=== PATIENT | female | born 1975 | race Caucasian/White ===

== ENCOUNTER → 2017-03-29 | Outpatient (CLI) | payer OTHER ==
--- NOTE | 2017-04-05 20:49 | CONS ---
DATE OF CONSULTATION: 03/29/2017 This patient is a 41-year-old lady who has been evaluated in the sleep center for possible obstructive sleep apnea/hypopnea syndrome. 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 She sleeps from 7 a.m. until 2 p.m. and takes a nap from around 10 p.m. until 1 a.m. No problem with falling asleep. She has tiredness, mood swings, positive history of snoring before, thyroidectomy which was done in November of 2016. The patient wakes up from sleep once with nocturia. No TV in bedroom. No history of hypnagogic hallucinations, sleep paralysis or cataplexy. [place] Sleepiness Scale is 6. Past medical history is positive for: 1. Acid reflux. 2. Mood swings. 3. Hypothyroidism. PAST SURGICAL HISTORY: Thyroidectomy in November 2016 for goiter. SOCIAL HISTORY: Smoker of 1 pack for 20 years. Alcohol consumption rarely. REVIEW OF SYSTEMS: No fevers. No double vision. No recent chest pain. No shortness of breath. No abdominal pain. No bleeding episodes. No blood in urine. No seizure episodes. Tiredness. Sometimes sleepiness. FAMILY HISTORY: Hypertension, heart problems, sleep apnea, cancer, diabetes. PHYSICAL EXAM: The patient is a pleasant 41-year-old lady without distress. VITAL SIGNS: Blood pressure 126/83, heart rate 78, respiratory rate 18. Height 63. Weight 140. BMI 24.7. Neck 13 inches in circumference. Temperature 98.4. Oxygen saturation on room air 99%. GENERAL: A pleasant patient without distress. HEENT: PERRLA. EOMI. Evaluation of oropharynx showed tongue protrudes midline. Extremely low position of soft palate. Nasal restriction on the left side. NECK: Supple. No JVD. Thyroid is not palpable. LUNGS: Clear to percussion and to auscultation. Good air exchange. No wheezing or rhonchi. HEART: S1, S2 regular. No murmurs, gallops or rubs. ABDOMEN: Soft and non-tender. Bowel sounds are present. No organomegaly appreciated. EXTREMITIES: No clubbing or cyanosis. NECK CUTTER: Awake, alert and oriented x3. Cranial nerves 2 through 7 are intact. There is no fasciculation or atrophy noted. No focal deficits observed. IMPRESSION: 1. History of snoring before thyroidectomy, tiredness during the day, extremely low position of soft palate, restriction of nasal breathing on the left side; possible obstructive sleep apnea/hypopnea syndrome. 2. Tiredness. 3. Episodes of mood swings. 4. Acid reflux. 5. Status post thyroidectomy for goiter in November 2016. 6. Hypothyroidism, on thyroid supplement. 7. Smoker for 20 pack/years. PLAN: 1. Polysomnography for evaluation of patients breathing during sleep. 2. CPAP/BiPAP titration if sleep study confirms obstructive sleep apnea/ hypopnea syndrome. 3. Preferable position during sleep on the side. 4. No driving if feeling any sleepiness. Patient is aware of civil and criminal liability for unsafe driving. 5. I will see this patient for follow-up visit to explain results of the testing and follow-up plan. Sincerely, Modesto Martinez. , PhD, FAASM. Diplomat of [place] [employer], Sleep Medicine Board by [place] [employer] [place] [employer] Landing Support Specialist of [facility]
== END ==
LOC: SLEEP 11:24
PROVIDERS: ATTEND Internal Medicine
DX: R06.83 Snoring (principal); K21.9 Gastro-esophageal reflux disease without esophagitis; E03.9 Hypothyroidism, unspecified; Z79.899 Other long term (current) drug therapy; F17.210 Nicotine dependence, cigarettes, uncomplicated
CPT/HCPCS: 99211

== ENCOUNTER → 2017-09-20 | Outpatient (CLI) | payer OTHER ==
--- NOTE | 2017-09-21 07:18 | MM ---
Reason for exam: additional evaluation requested from abnormal screening. Last mammogram was performed 1 month ago. Physical Findings: Nurse did not find any significant physical abnormalities on exam. MG Work Up Mamm w CAD LT LM and spot compression MLO view(s) were taken of the left breast. Prior study comparison: September 04, 2017, bilateral MG screening mammo w CAD. June 30, 2016, bilateral MG screening mammo w CAD. The breast tissue is heterogeneously dense. This may lower the sensitivity of mammography. Asymmetric tissue better seen on true lateral but does not completely go away on additional spot view. These results were verbally communicated with the patient and result sheet given to the patient on 09/20/17. ASSESSMENT: Incomplete: need additional imaging evaluation, BI-RAD 0 RECOMMENDATION: Ultrasound of the left breast. (axilla)
--- NOTE | 2017-09-21 07:20 | USB ---
Reason for exam: additional evaluation requested from abnormal screening. US Breast Workup Limited LT Left breast ultrasound including axilla demonstrates two oval, benign lymph nodes at 2 o'clock measuring 5mm and 6mm. These results were verbally communicated with the patient and result sheet given to the patient on 09/20/17. ASSESSMENT: Probably benign, BI-RAD 3 RECOMMENDATION: Follow-up diagnostic mammogram of the left breast in 6 months.
== END | disposition home or self-care (01) ==
LOC: RADMAMWWP 13:25
PROVIDERS: ATTEND Family Medicine
DX: R92.8 Other abnormal and inconclusive findings on diagnostic imaging of breast (principal)
CPT/HCPCS: 76642; G0206

== ENCOUNTER → 2018-03-25 | Outpatient (CLI) | payer OTHER ==
--- NOTE | 2018-03-26 08:09 | MM ---
Reason for exam: follow-up at short interval from prior study. Last mammogram was performed 6 months ago. Physical Findings: Nurse did not find any significant physical abnormalities on exam. MG Diagnostic Mammo LT w CAD CC and MLO view(s) were taken of the left breast. Prior study comparison: September 20, 2017, left breast MG work up mamm w CAD LT. September 04, 2017, bilateral MG screening mammo w CAD. The breast tissue is heterogeneously dense. This may lower the sensitivity of mammography. No significant new findings when compared with previous films. These results were verbally communicated with the patient and result sheet given to the patient on 03/25/18. ASSESSMENT: Benign, BI-RAD 2 RECOMMENDATION: Return to routine screening mammogram schedule for both breasts. Back on schedule.
== END | disposition home or self-care (01) ==
LOC: RADMAMWWP 15:26
PROVIDERS: ATTEND Family Medicine
DX: R92.8 Other abnormal and inconclusive findings on diagnostic imaging of breast (principal)
CPT/HCPCS: 77065

== ENCOUNTER → 2018-08-06 | Outpatient (CLI) | payer OTHER ==
--- NOTE | 2018-08-06 15:57 | US ---
EXAMINATION TYPE: US pelvis complete transvag DATE OF EXAM: 08/06/2018 COMPARISON: NONE CLINICAL HISTORY: Left lower quadrant pain R10.32. No period in July. LLQ pain TECHNIQUE: Transvaginal (TV) and Transabdominal (TA) . Transabdominal sonographic images of the pel vis were acquired. Transvaginal sonographic images were medically necessary to better assess the fol lowing anatomy: Endometrium Date of LMP: Jun 2018 EXAM MEASUREMENTS: Uterus: 9.7 x 4.1 x 3.0 cm Endometrial Stripe: 0.9 cm Right Ovary: 2.1 x 0.9 x 1.2 cm Left Ovary: 2.4 x 1.6 x 1.6 cm 1. Uterus: Anteverted Hypoechoic lesion seen midline either adjacent to or within endometrium-- un able to accurately determine = 1.4 x 1.3 x 1.1 cm 2. Endometrium: wnl 3. Right Ovary: wnl 4. Left Ovary: dominant follicle 5. Bilateral Adnexa: wnl 6. Posterior cul-de-sac: no free fluid IMPRESSION: 1. Possible uterine fibroid. This could be a mass within the endometrial canal. Consider MRI for gian tional delineation. 2. Left ovarian cyst. Follow-up is recommended.
== END ==
LOC: RADUSWWP 14:37
PROVIDERS: ATTEND Family Medicine
DX: N83.202 Unspecified ovarian cyst, left side (principal)
CPT/HCPCS: 76830; 76856

== ENCOUNTER → 2018-10-17 | Outpatient (CLI) | payer OTHER ==
--- NOTE | 2018-10-21 17:59 | MM ---
Reason for exam: additional evaluation requested from prior study. Last mammogram was performed 7 months ago. Physical Findings: Nurse did not find any significant physical abnormalities on exam. MG Diagnostic Mammo w CAD FLORESITA Bilateral CC and MLO view(s) were taken. Prior study comparison: March 25, 2018, left breast MG diagnostic mammo LT w CAD. September 20, 2017, left breast MG work up mamm w CAD LT. The breast tissue is heterogeneously dense. This may lower the sensitivity of mammography. No suspicious abnormality. The left breast superior posterior depth asymmetry appears less conspicuous than on the prior and similar to 2016. These results were verbally communicated with the patient and result sheet given to the patient on 10/17/18. ASSESSMENT: Benign, BI-RAD 2 RECOMMENDATION: Routine screening mammogram of both breasts in 1 year.
== END ==
LOC: RADMAMWWP 12:38
PROVIDERS: ATTEND Family Medicine
DX: R92.8 Other abnormal and inconclusive findings on diagnostic imaging of breast (principal)
CPT/HCPCS: 77066

== ENCOUNTER → 2018-11-05 | Outpatient (CLI) | payer OTHER ==
[2018-11-05 09:26] LABS: Basophils # (A) 0.1 k/uL (0-0.2); Basophils % (A) 1 %; Eosinophils # (A) 0.1 k/uL (0-0.7); Eosinophils % (A) 1 %; HCT 38.3 % (34.0-46.0); HGB 12.3 gm/dL (11.4-16.0); Lymphocytes # (A) 2.1 k/uL (1.0-4.8); Lymphocytes % (A) 30 %; MCH 27.4 pg (25.0-35.0); MCHC 32.1 g/dL (31.0-37.0); MCV 85.2 fL (80.0-100.0); Monocytes # (A) 0.5 k/uL (0-1.0); Monocytes % (A) 7 %; Neutrophils # (A) 4.1 k/uL (1.3-7.7); Neutrophils % (A) 58 %; Platelet Count 229 k/uL (150-450)
[2018-11-05 10:02] LABS: Anion Gap 7 mmol/L; Blood Urea Nitrogen 13 mg/dL (7-17); Carbon Dioxide 28 mmol/L (22-30); Chloride 103 mmol/L (98-107); Glucose 96 mg/dL (74-99); Potassium 4.5 mmol/L (3.5-5.1); Sodium 138 mmol/L (137-145)
== END | disposition home or self-care (01) ==
LOC: LABWHC1 08:03
PROVIDERS: ATTEND Obstetrics & Gynecology
DX: Z01.818 Encounter for other preprocedural examination (principal); Z01.812 Encounter for preprocedural laboratory examination; I10 Essential (primary) hypertension; N81.4 Uterovaginal prolapse, unspecified; N39.3 Stress incontinence (female) (male)
CPT/HCPCS: 36415; 80051; 82565; 82947; 84520; 85025; 87086; 93005

== ENCOUNTER 2018-11-12 05:31 | Inpatient (IN) | payer OTHER ==
[2018-11-05 11:18] VITALS: BMI 30.5
--- NOTE | 2018-11-11 14:55 | HP ---
HISTORY AND PHYSICAL REASON FOR ADMISSION: Surgery scheduled 11/12/2018 HISTORY OF PRESENT ILLNESS: The patient is a 43-year-old 3, para 2-0-1-2, who presented on referral for evaluation of dysfunctional uterine bleeding with symptoms of prolapse. She had complained of relatively recent onset of cycle irregularity over the last 3-6 months, but also complained of significant symptoms of pressure with a suprapubic pulling sensation. Additionally, she had complaints of fairly significant stress urinary incontinence for which she was forced to wear a pad daily. On examination, she was found to have grade 3 cystocele and grade 2-3 uterine prolapse. She was counseled regarding options and wished to undergo definitive surgical repair. As she also has fairly clear stress urinary incontinence, she is scheduled to undergo trans obturator sling procedure or Decorah suburethral sling procedure at the hands of Dr. Maguire to follow my surgery. PAST MEDICAL HISTORY: Significant for history of Graves disease. She additionally has some small fibroids as well as menometrorrhagia as noted above. SURGICAL HISTORY: She has undergone a thyroid surgery for removal of the gland in 2017 and remotely underwent tubal ligation. OBSTETRICAL HISTORY: 3, para 2-0-1-2 with 2 term vaginal deliveries and 1 elective interruption of . Method of contraception is tubal ligation. GYNECOLOGIC HISTORY: Unremarkable with no history of any infections to include STDs. FAMILY HISTORY: Noncontributory. SOCIAL HISTORY: The patient is single and does work outside the home. She is a nonsmoker but has a history of smoking. She reports occasional alcohol and no other social concerns. CURRENT MEDICATIONS: Include vitamin D daily. Escitalopram 5 mg daily. Levothyroxine 0.112 mg daily. Lisinopril 10 mg daily. Omeprazole 40 mg daily. ALLERGIES: No known drug allergies. REVIEW OF SYSTEMS: Confined to history of present illness. PHYSICAL EXAMINATION: Vital signs are stable. The patient is afebrile. In general, this is a well- developed, well-nourished white female in no acute distress. HEENT demonstrates PERRLA, EOMI, her oropharynx is clear. NECK: Supple without adenopathy. Her heart has a regular rhythm and rate without murmur. Her lungs are clear to auscultation bilaterally in all brandt. Her abdomen is nondistended, has normoactive bowel sounds, is soft, nontender, without any palpable masses, hepatosplenomegaly, or hernias. Her extremities are without any cyanosis, clubbing, or edema and are nontender to palpation bilaterally. Pelvic examination demonstrates normal external genitalia and BUS with normal vaginal mucosa and cervix. There is a grade 3 cystocele present as well as grade 2-3 uterine prolapse. Uterus is approximately 5 weeks in size, mid plane, mobile, nontender, normal in shape. The adnexa are normal and nontender without any apparent masses bilaterally. ASSESSMENT AND PLAN: Cystocele with uterine prolapse: We have discussed a number of different potential interventions and she has requested definitive therapy. We therefore have intended to proceed with vaginal hysterectomy with anterior repair. The risks and complications of these procedures have been thoroughly discussed including the risks for bleeding, bleeding requiring transfusion, infection, and injury to local structures to include the bowel, bladder, and ureters. She has understood all this and agreed to proceed. She will additionally undergo a Decorah suburethral sling for stress urinary incontinence immediately to follow my procedure with counseling per Dr. Maguire. The typical hospital and postoperative courses have also been discussed. MMODL / IJN: [id number] /
[~2018-11-12 05:31] MED LIST: ceFAZolin IN SWFI 2 GM/20 ML SYRINGE IVP ONE
[2018-11-12] MEDS ORDERED: fentaNYL (PF) 50 MCG/ML 2 ML AMP IV PRN (06:26)
[2018-11-12] MEDS ORDERED: DEXAMETHASONE SOD PHOSPHATE 10 MG/ML 1 ML VIAL IV ONE (06:26)
[2018-11-12] MEDS ORDERED: LACTATED RINGERS 1,000 ML IV SCH (06:26)
[2018-11-12] MEDS ORDERED: LIDOCAINE 1% 20 ML VIAL (10MG/ML) FOR IV START INTRADERMA PRN (06:26)
[2018-11-12] MEDS ORDERED: MIDAZOLAM (PF) 2 MG/2 ML VIAL IV PRN (06:26)
[2018-11-12] MEDS ORDERED: HYDROmorphone 0.5 MG/0.5 ML SYRINGE IVP PRN ×2 (06:26→08:12)
[2018-11-12] MEDS ORDERED: ONDANSETRON 4 MG/2 ML VIAL IVP ONE (06:26)
[2018-11-12] MEDS ORDERED: fentaNYL (PF) 50 MCG/ML 2 ML AMP IVP ONE (07:05)
[2018-11-12] MEDS ORDERED: fentaNYL (PF) 50 MCG/ML 2 ML AMP ONE (07:33)
[2018-11-12] MEDS ORDERED: SUCCINYLCHOLINE CHLORIDE 100 MG/5 ML SYR IV ONE (07:33)
[2018-11-12] MEDS ORDERED: diphenhydrAMINE 50 MG/ML 1 ML VIAL ONE (07:33)
[2018-11-12] MEDS ORDERED: LIDOCAINE 1% INJ 10MG/ML (20 ML MDV) ONE (07:33)
[2018-11-12] MEDS ORDERED: MORPHINE SULFATE (PF) 0.3 MG/0.3 ML SYR ONE (07:33)
[2018-11-12] MEDS ORDERED: PROPOFOL 10 MG/ML 20 ML VIAL IV ONE (07:33)
[2018-11-12] MEDS ORDERED: VASOPRESSIN 20 UNIT/ML 1 ML VIAL IV ONE (07:34)
[2018-11-12] MEDS ORDERED: ONDANSETRON 4 MG/2 ML VIAL IVP PRN (07:48)
[2018-11-12] MEDS ORDERED: KETOROLAC 30 MG/ML 1 ML VIAL IVP PRN (07:48)
[2018-11-12] MEDS ORDERED: IBUPROFEN 600 MG TAB PO PRN (07:48)
[2018-11-12] MEDS ORDERED: METOCLOPRAMIDE 5 MG/ML 2 ML VIAL IVP PRN (07:48)
[2018-11-12] MEDS ORDERED: SIMETHICONE 80 MG CHEWABLE PO PRN (07:48)
[2018-11-12] MEDS ORDERED: Acetaminophen-Codeine 300-30mg TAB PO PRN ×2 (07:48)
[2018-11-12] MEDS ORDERED: NALOXONE 0.4 MG/ML 1 ML VIAL IV PRN (08:12)
[2018-11-12] MEDS ORDERED: NALBUPHINE 10 MG/ML (1 ML AMP) IV PRN (08:12)
[2018-11-12] MEDS ORDERED: diphenhydrAMINE 50 MG/ML 1 ML VIAL IVP PRN (08:12)
[2018-11-12] MEDS ORDERED: GENTAMICIN 40 MG/ML 2 ML VIAL IRRIGATION ONE (08:24)
[2018-11-12] MEDS ORDERED: LACTATED RINGERS 1,000 ML IV ONE (08:35)
--- NOTE | 2018-11-12 09:21 | P.OP ---
Date of Procedure: 11/12/18 Preoperative Diagnosis: #1. Symptomatic pelvic organ prolapse, grade 2+ uterine prolapse, grade 3 cystocele #2. Dysfunctional uterine bleeding #3. Stress urinary incontinence Postoperative Diagnosis: Same Procedure(s) Performed: #1. Vaginal hysterectomy #2. Anterior colporrhaphy #3. Monarc suburethral sling (Tremp) Anesthesia: BRITTA Surgeon: Antonio Escobar Energy Efficiency Finance Manager #1: Kim Maguire Estimated Blood Loss (ml): 300 IV fluids (ml): 800 Urine output (ml): 100 Pathology: other (Uterus) Condition: stable Disposition: PACU Operative Findings: Preoperative pelvic examination confirmed the findings of a grade 2+ uterine prolapse with grade 3 cystocele. Intraoperatively, the tubes and ovaries appeared normal to inspection but were not amenable to removal in either case. They were left in situ. There was a moderate amount of bleeding during the cystocele and sling repair. The rectum appeared to be well supported. Description of Procedure: The patient was prepped and draped in usual fashion after general endotracheal anesthesia was administered by the anesthesiologist. A weighted speculum was placed and the bladder was drained of 100 mL of clear juanjo urine. The cervix was grasped with a double-tooth tenaculum and the cervicovaginal mucosa circumferentially infused with diluted vasopressin solution. The mucosa was then incised circumferentially and reflected distally both bluntly and sharply. The posterior cul-de-sac was identified and incised sharply. The peritoneum was then tagged with a stitch of 2-0 Vicryl for later use. The short weighted speculum was replaced with the long weighted speculum and further reflection of the mucosa carried out. Curved [place] clamps were utilized on each side to take the uterosacral ligament and then up through the cardinal ligament towards the utero-ovarian ligaments on each side. Each was clamped, cut, and tied with a transfixion stitch of 0 Vicryl. After several bites on either side , the uterus was inverted posteriorly to identify the anterior peritoneum which was opened sharply. This isolated the utero-ovarian ligaments on each side which were clamped with curved [place] clamps, cut, and suture- ligated with a transfixion stitch of 0 Vicryl followed by a free tie of 0 Vicryl. Hemostasis was then examined and found to be excellent throughout all the pedicle levels. The long weighted speculum was replaced with the short weighted speculum after ensuring no pathology with the tubes and ovaries. The previously placed stitch of 2-0 Vicryl was utilized to close the parietal peritoneum in a pursestring stitch. The uterosacral ligaments were tied together and through the contralateral ligaments and mucosa in a modified Conde 's culdoplasty with 0 Vicryl. The intervening open posterior cuff was closed with interrupted [id number] stitches of 0 Vicryl. The anterior peritoneum was left open and the edges at the top grasped with Allis clamps. The vesicovaginal mucosa was infused with diluted vasopressin solution. Metzenbaum scissors were utilized to undermine the tissue in the midline and divided to its apex near the urethra. The bladder was then drained of clear juanjo urine, approximately 20 mL. The catheter was left in place. The mucosa was then dissected from the underlying tissues. A moderate amount of bleeding with some fairly large blood vessels was encountered. Cautery was utilized to control most of it while one of the larger vessels was controlled using a Teresa plication stitch during closure. Once adequate reflection of been carried out, serial Teresa plication stitches were taken from near the urethral apex to the intervening open the vagina from the hysterectomy portion. This was using 2-0 Vicryl and 2-0 PDS. The intervening vaginal mucosa that was redundant was then excised with maximum scissors and discarded. The case was then handed to for completion of the [place] suburethral sling. Estimated blood loss for my portion of the case was approximately 250 mL. All sponge, instrument, needle counts were correct. Patient tolerated the procedure well and was passed to the next surgeon in stable condition.
[2018-11-12] MEDS: diphenhydrAMINE 50 MG/ML 1 ML VIAL IVP PRN ×3 (09:40→21:14)
--- NOTE | 2018-11-12 09:40 | P.OP ---
Date of Procedure: 11/12/18 Preoperative Diagnosis: Stress urinary incontinence Postoperative Diagnosis: Same Procedure(s) Performed: Transobturator tape with diagnostic cystoscopy Anesthesia: ANTA Surgeon: Kim Maguire Park Maintenance Technician #1: Antonio Escobar Estimated Blood Loss (ml): 50 IV fluids (ml): 100 Urine output (ml): 100 Pathology: none sent Condition: stable Disposition: PACU Indications for Procedure: Stress urinary incontinence Operative Findings: Diagnostic cystoscopy revealed normal bladder bladder bubble was noted intact cavity was noted complete evaluation of the bladder revealed normal bladder mucosa with no sign of tape perforation both ureteral orifices were noted to be spilling clear yellow urine Description of Procedure: patient was seen in the preoperative area and procedure was reviewed once again. Informed consent was obtained in the office and risks were reviewed including perforation of the bladder, risks of failure of the procedure and urgency after. Patient states understanding all questions were answered the patient was taken operating suite. Prior to the transobturator tape placement a vaginal hysterectomy was performed along with an anterior colporrhaphy with Dr. Escobar. Once the anterior colporrhaphy was completed I entered the operating suite and started my portion of the procedure the after membrane was palpated 5 cm from the clitoris and soto were made on both sides. The vaginal mucosa was then dissected from the midline out toward this side seam machine operator membrane. The device was then opened the hook was placed through the groin incision toward the vaginal opening the tape was then placed on this and pulled through the side seam machine operator membrane toward the groin skin. This was then repeated on the opposite side. The cystoscopy was then performed at this time. The cystoscope was placed through the urethra and toward the bladder bladder bubble was noted the bladder was noted to be intact with no defects both ureteral orifices be spilling clear urine at this time the cystoscopy was complete and the cystoscope was removed. A Zavala catheter was placed. The tape was then placed loosely against the bladder neck and trimmed at the groin edges. Dermabond was placed at the groin incisions. The vaginal mucosa was then closed with 2-0 Vicryl in a running locked fashion. Hemostasis was appreciated. All counts were correct 2 for my portion of the procedure patient tolerated this procedure well and was taking to the recovery room awake in stable condition.
[2018-11-12] MEDS: LACTATED RINGERS 1,000 ML IV SCH ×2 (11:38→18:33)
[2018-11-12] MEDS: SENNOSIDES-DOCUSATE SODIUM 1 EACH TAB PO SCH ×2 (11:39→20:31)
[2018-11-13 05:04] VITALS: PULSE 81
[2018-11-13] MEDS: LACTATED RINGERS 1,000 ML IV SCH (05:04)
[2018-11-13 07:26] LABS: Basophils % (A) 0 %; Eosinophils % (A) 0 %; Lymphocytes # (A) 2.4 k/uL (1.0-4.8); Lymphocytes % (A) 26 %; MCH 27.4 pg (25.0-35.0); MCHC 32.4 g/dL (31.0-37.0); MCV 84.6 fL (80.0-100.0); Mean Platelet Volume 7.5; Monocytes # (A) 0.8 k/uL (0-1.0); Monocytes % (A) 8 %; Neutrophils # (A) 6.1 k/uL (1.3-7.7); Neutrophils % (A) 64 %; Platelet Count 207 k/uL (150-450); RBC 3.66 m/uL (3.80-5.40); RDW 14.2 % (11.5-15.5); WBC 9.5 k/uL (3.8-10.6)
--- NOTE | 2018-11-13 08:36 | P.PN ---
Subjective Progress Note Date: 11/13/18 Principal diagnosis: Postop day 1 status post vaginal hysterectomy, anterior colporrhaphy, trans- obturator tape with obturix/ DC Patient states she did well overnight. She had her Zavala catheter taken out at 6 AM and we are awaiting spontaneous void at this time. Patient denies pain and states she took 1 Tylenol No. 3 at 5 AM. She denies nausea or vomiting and is tolerating a regular diet. She denies any vaginal bleeding. Objective - Vital Signs Vital signs: Vital Signs Temp 98 F 11/13/18 04:00 Pulse 81 11/13/18 04:00 Resp 15 11/13/18 06:00 BP 125/73 11/13/18 04:00 Pulse Ox 98 11/12/18 22:00 Intake & Output 11/12/18 11/13/18 11/13/18 18:59 06:59 18:59 Intake Total 1900 Output Total 1800 2300 Balance 100 -2300 Intake: IV 1100 Intake, IV Titration 800 Amount Lactated Ringers 1,000 ml 800 @ 100 mls/hr IV .Q10H BILLY Rx#:[id number] Output: Urine 1500 2300 Uretheral (Zavala) 2300 Estimated Blood Loss 300 Other: Voiding Method Indwelling Catheter # Voids 1 - Constitutional General appearance: Present: average body habitus, no acute distress - Gastrointestinal General gastrointestinal: Present: soft - Genitourinary Genitourinary Comment(s): Inspected patient's. Pad no bleeding noted, bruising noted in the right groin. - Psychiatric Psychiatric: Present: A&O x's 3, appropriate affect, intact judgment & insight - Labs CBC & Chem 7: 11/13/18 06:48 Labs: Abnormal Lab Results - Last 24 Hours (Table) 11/13/18 Range/Units 06:48 RBC 3.66 L (3.80-5.40) m/uL Hgb 10.0 L D (11.4-16.0) gm/dL Hct 31.0 L (34.0-46.0) % Assessment and Plan (1) Cystocele Current Visit: Yes Status: Acute Code(s): [id number] - SNOMED Code(s): 189313153 (2) Dysfunctional uterine bleeding Current Visit: Yes Status: Acute Code(s): N93.8 - OTHER SPECIFIED ABNORMAL UTERINE AND VAGINAL BLEEDING SNOMED Code(s): 95722262 (3) MELISA (stress urinary incontinence, female) Current Visit: Yes Status: Acute Code(s): N39.3 - STRESS INCONTINENCE ( FEMALE) (MALE) SNOMED Code(s): 02771486 (4) Uterine prolapse Current Visit: Yes Status: Acute Code(s): N81.4 - UTEROVAGINAL PROLAPSE, UNSPECIFIED SNOMED Code(s): 62964881 Plan: Anticipate discharge home later today. Will want postvoid residual to be less than 100 after first avoid. Patient understands she will follow-up with Dr. Escobar as scheduled..
--- NOTE | 2018-11-13 08:46 | P.DS ---
Providers Date of admission: 11/12/18 09:18 Expected date of discharge: 11/13/18 Attending physician: Antonio Escobar Primary care physician: Abdi Connolly - Discharge Diagnosis(es) (1) Cystocele Current Visit: Yes Status: Acute (2) MELISA (stress urinary incontinence, female) Current Visit: Yes Status: Acute (3) Uterine prolapse Current Visit: Yes Status: Acute Hospital Course: The patient is a 43-year-old 3 para 2012 presented to the office on referral for both dysfunctional uterine bleeding and symptoms of prolapse. Examination of noted that she had a grade 3 cystocele with grade 2+ uterine prolapse. She also complained of fairly significant stress urinary incontinence. As result, she was counseled regarding options and opted to undergo surgical repair for all these problems. She was taken the operating room where she underwent vaginal hysterectomy with anterior colporrhaphy and Britt suburethral sling. All of these were carried out and an uncomplicated fashion. Her postoperative course has been unremarkable with vital signs remaining stable and her temperature has been afebrile throughout. She reports good pain control and has recently had her catheter removed. She will now have a voiding trial and, assuming she is able to void the majority of urine without difficulty, will be discharged home later today. Discharge instructions included calling for any significantly increased bleeding, fever, pain, or anything else that concerned her. She was primarily instructed to do no heavy lifting over the course of the next 6 weeks. She was last instructed to do no driving until off of all pain medications or 2 weeks' time and to abstain from intercourse for at least 6 weeks as well. She understood all of her instructions and agrees to follow up in 2 weeks for a recheck and 6 weeks routinely. Discharge medications included any home medications plus a prescription for Tylenol 3, 1-2 by mouth every 6 hours when necessary pain, #20 dispensed with no refills. Discharge hemoglobin and hematocrit were 10.0 and 31.0 respectively. Procedures: #1. Vaginal hysterectomy #2. Anterior colporrhaphy #3. Britt suburethral sling Patient Condition at Discharge: Stable Plan - Discharge Summary Discharge Rx Participant: Yes New Discharge Prescriptions: No Action Escitalopram [Lexapro] 5 mg PO 1200 Lisinopril [Zestril] 10 mg PO 1200 Cholecalciferol [Vitamin D3] 6,000 unit PO 1200 Omeprazole [PriLOSEC] 40 mg PO DAILY Levothyroxine Sodium [Synthroid] 112 mcg PO DAILY QUEtiapine FUMARATE [SEROquel] 25 mg PO BID Aspirin/Acetaminophen/Caffeine [Excedrin Migraine Caplet] 1 each PO DIRECTED PRN PRN Reason: Pain Naproxen Sodium [Midol] 220 mg PO Q12HR PRN PRN Reason: Pain Discharge Medication List Aspirin/Acetaminophen/Caffeine [Excedrin Migraine Caplet] 1 each PO DIRECTED PRN 11/05/18 [History] Cholecalciferol [Vitamin D3] 6,000 unit PO 1200 11/05/18 [History] Escitalopram [Lexapro] 5 mg PO 1200 11/05/18 [History] Levothyroxine Sodium [Synthroid] 112 mcg PO DAILY 11/05/18 [History] Lisinopril [Zestril] 10 mg PO 1200 11/05/18 [History] Naproxen Sodium [Midol] 220 mg PO Q12HR PRN 11/05/18 [History] Omeprazole [PriLOSEC] 40 mg PO DAILY 11/05/18 [History] QUEtiapine FUMARATE [SEROquel] 25 mg PO BID 11/05/18 [History] Follow up Appointment(s)/Referral(s): Antonio Escobar MD [STAFF PHYSICIAN] - 2 Weeks Discharge Disposition: HOME SELF-CARE
[2018-11-13 09:08] VITALS: BP 106/68; RESP 14; TEMP 98.1
--- NOTE | 2018-11-13 10:16 | P.PN ---
Progress Note - Text Anesthesia POD 1. Patient is status post vaginal hysterectomy under general endotracheal anesthesia with intra-thecal preservative free morphine the 100 g. Moderate pruritus, excellent post-op analgesia, and no headache or other complication.
== END 2018-11-13 10:02 | disposition home or self-care (01) | DRG 743 ==
LOC: OR 05:31 → 4FBP 09:18
PROVIDERS: ADMIT Obstetrics & Gynecology; ATTEND Obstetrics & Gynecology
PROC: 0UT97ZZ Resection of Uterus, Via Natural or Artificial Opening (ICD-10-PCS; principal; 2018-11-12 07:30)
PROC: 0JQC0ZZ Repair Pelvic Region Subcutaneous Tissue and Fascia, Open Approach (ICD-10-PCS; 2018-11-12 07:30)
PROC: 0TSD0ZZ Reposition Urethra, Open Approach (ICD-10-PCS; 2018-11-12 07:30)
DX: N81.3 Complete uterovaginal prolapse (principal); N39.3 Stress incontinence (female) (male); I10 Essential (primary) hypertension; E07.9 Disorder of thyroid, unspecified; N93.8 Other specified abnormal uterine and vaginal bleeding; F41.9 Anxiety disorder, unspecified; L29.9 Pruritus, unspecified; Z79.899 Other long term (current) drug therapy; Z87.891 Personal history of nicotine dependence; Z79.890 Hormone replacement therapy; Z98.51 Tubal ligation status; Z98.890 Other specified postprocedural states
CPT/HCPCS: 81025; 85025; 86850; 86900; 86901; 88305

== ENCOUNTER → 2019-01-22 | Outpatient (CLI) | payer OTHER ==
--- NOTE | 2019-01-22 08:39 | US ---
EXAMINATION TYPE: US abdomen complete DATE OF EXAM: 01/22/2019 COMPARISON: NONE CLINICAL HISTORY: R10.9 abdominal pain. Difficult exam due to overlying bowel gas EXAM MEASUREMENTS: Liver Length: 16.3 cm Gallbladder Wall: 0.2 cm CBD: 0.5 cm Spleen: 9.9 cm Right Kidney: 10.9 x 4.2 x 4.9 cm Left Kidney: 10.8 x 5.1 x 4.6 cm Pancreas: Obscured by bowel gas Liver: There is increased echogenicity of the hepatic parenchyma with diminished visualization of th e portal triads most commonly relating to hepatic steatosis and limiting evaluation for underlying he patic masses. Gallbladder: wnl Evidence for sonographic Abel's sign: No CBD: wnl as visualized, distal portion obscured by bowel gas Spleen: wnl Right Kidney: No hydronephrosis or masses seen Left Kidney: No hydronephrosis. Multiple echogenic foci visualized, largest measuring 0.9 cm Upper IVC: wnl Abd Aorta: wnl The liver is hyperechoic. The intrahepatic portion of the IVC and proximal abdominal aorta are within normal limits. There is no evidence of cholelithiasis. Common bile duct is unremarkable. The visu alized portions of the pancreas are homogenous. The spleen is unremarkable. Kidneys are symmetric a nd free of hydronephrosis. No renal lesions are seen. IMPRESSION: 1. Findings most commonly related to hepatic steatosis. Correlate with liver function tests. 2. Multiple nonobstructing left renal calculi measuring up to 9 mm. 3. Obscuration of the pancreas by overlying bowel gas.
--- NOTE | 2019-01-22 08:41 | US ---
EXAMINATION TYPE: US pelvic complete DATE OF EXAM: 01/22/2019 COMPARISON: 08/06/2018 US CLINICAL HISTORY: R10.9 abdominal pain. LLQ pain when doctor pushes on pelvic area. Partial hysterect ella November 2018 TECHNIQUE: Transabdominal sonographic images of the pelvis were acquired. Date of LMP: October 2018 EXAM MEASUREMENTS: Uterus: Surgically absent Endometrial Stripe: Surgically absent Right Ovary: 2.2 x 1.6 x 1.7 cm Left Ovary: 2.8 x 1.6 x 1.7 cm 1. Uterus: Surgically absent 2. Endometrium: Surgically absent 3. Right Ovary: Follicle visualized measuring 1.3 x 1.1 x 1.0 cm 4. Left Ovary: Follicle visualized measuring 1.7 x 1.6 x 1.5 cm 5. Bilateral Adnexa: wnl 6. Posterior cul-de-sac: wnl IMPRESSION: 1. Follicular changes of the ovaries, no suspicious ovarian lesion at this time. 2. Surgical absence of the uterus.
== END | disposition home or self-care (01) ==
LOC: RADUSWWP 06:44
PROVIDERS: ATTEND Family Medicine
DX: N20.0 Calculus of kidney (principal); Z90.710 Acquired absence of both cervix and uterus
CPT/HCPCS: 76700; 76856

== ENCOUNTER → 2019-04-21 | Outpatient (CLI) | payer OTHER ==
--- NOTE | 2019-04-21 14:46 | CT ---
EXAMINATION TYPE: CT abdomen pelvis wo con DATE OF EXAM: 04/21/2019 COMPARISON: None HISTORY: 43-year-old female Renal stones CT DLP: 495.7 mGycm. Automated exposure control for dose reduction was used. TECHNIQUE: Contiguous axial scanning of the abdomen and pelvis without IV contrast. Coronal and sagit isabelle reconstructions performed. FINDINGS: Heart normal size without pericardial effusion. Lung bases clear without pleural effusion. Gallbladder mildly distended of 4.1 cm wide. Small dependent 4 mm gallstone. Liver upper limits of normal in size at 17.6 cm with diffuse low-attenuation. Adrenal glands, spleen, and pancreas show no gross abnormality by noncontrast technique. Single 4 mm nonobstructive right renal calculus. There are 4 nonobstructive left renal calculi, largest in the upper pole measures 5 mm. While there i s no significant hydronephrosis, there is a 4 mm calculus at the distal left ureter prior to the UVJ. No dilated small bowel, free fluid, or free air. No significant stool burden. No pericolonic inflamma tory change. No mesenteric or retroperitoneal lymphadenopathy. Bladder poorly distended. Uterus is surgically absent. Both ovaries are visualized. No abnormal fluid collection in the pelvis or pelvic lymphadenopathy. Bones: Degenerative disc disease L4-L5 and L5-S1 along with facet arthropathy. IMPRESSION: 1. A 4 mm distal left ureteral calculus. No significant obstructive uropathy at this time. 2. Additional bilateral nonobstructive nephrolithiasis measuring up to 5 mm. 3. Hepatic steatosis. 4. Mildly hydropic gallbladder with a 4 mm stone. Gallbladder distention probably relates to fasting state. If right upper quadrant pain or concern for early acute cholecystitis, follow-up ultrasound o r HIDA scan.
== END | disposition home or self-care (01) ==
LOC: RADCTMAIN 13:01
PROVIDERS: ATTEND Urology
DX: N20.2 Calculus of kidney with calculus of ureter (principal); K76.0 Fatty (change of) liver, not elsewhere classified; K80.20 Calculus of gallbladder without cholecystitis without obstruction
CPT/HCPCS: 74176

== ENCOUNTER → 2019-07-11 | Outpatient (CLI) | payer OTHER ==
--- NOTE | 2019-07-11 15:47 | US ---
EXAMINATION TYPE: US kidneys/renal and bladder DATE OF EXAM: 07/11/2019 COMPARISON: CT 04/21/2019 & US 01/22/2019 CLINICAL HISTORY: R10.9 left flank pain. Intermittent abdomen and left flank pain x 1 year, history o f kidney stones EXAM MEASUREMENTS: Right Kidney: 10.0 x 4.7 x 4.7 cm Left Kidney: 11.3 x 5.0 x 3.9 cm Right Kidney: No hydronephrosis, 0.4cm echogenic focus inferior pole Left Kidney: No hydronephrosis, 0.4cm echogenic focus inferior pole Bladder: wnl Bilateral Jets seen: yes There is no evidence for hydronephrosis at this point in time. No masses are identified. The urinary bladder is anechoic. Bilateral ureteral jets are seen. IMPRESSION: Bilateral nonobstructing renal calculi measure up to 4 mm on each side. No hydronephrosis is seen of either kidney.
== END | disposition home or self-care (01) ==
LOC: RADUSWWP 14:50
PROVIDERS: ATTEND Urology
DX: N20.0 Calculus of kidney (principal)
CPT/HCPCS: 76770

== ENCOUNTER → 2019-08-04 | Outpatient (CLI) | payer OTHER ==
--- NOTE | 2019-08-05 04:42 | CT ---
EXAMINATION TYPE: CT abdomen pelvis wo con DATE OF EXAM: 08/04/2019 COMPARISON: 04/21/2019 HISTORY: 43-year-old female flank pain, hx of stones CT DLP: 535.9 mGycm. Automated exposure control for dose reduction was used. TECHNIQUE: Contiguous axial scanning of the abdomen and pelvis without IV contrast. Coronal and sagit isabelle reconstructions performed. FINDINGS: Heart normal size without pericardial effusion. Lung bases clear without pleural effusion. Liver mildly enlarged at 18.5 cm with slight low attenuation. Gallbladder shows no abnormal distention but some layering gravel or tiny calculi. Adrenal glands, spleen, pancreas show no gross abnormality by noncontrast CT. A couple punctate 2 mm right lower pole renal calculi. A couple 4 mm nonobstructive left renal calcul i. No hydronephrosis or suspicious calcification seen along the course of either ureter. No dilated small bowel, free fluid, or free air. Scattered nonenlarged mediastinal and retroperitonea l lymph nodes probably reactive/post inflammatory. Normal appendix. Scattered [id number] stool. No pericolonic inflammatory change. Bladder nondistended. Bulging laxity of the levator ani musculature suggests some degree of pelvic fl oor relaxation. Uterus surgically absent. Both ovaries are visualized. No abnormal fluid collection i n the pelvis or pelvic lymphadenopathy. Bones: Moderate to advanced degenerative disc disease L4-L5 and L5-S1 with loss of disc height and va cuum phenomenon. Mild facet arthropathy lower lumbar spine. IMPRESSION: 1. Bilateral nonobstructive nephrolithiasis measuring up to 2 mm on the right and 4 m on the left. N o suspicious calcification seen along the course of either ureter or hydronephrosis. Interval clearan ce of the previous distal left ureteral stone. 2. Layering gravel or tiny gallstones. 3. Mild hepatomegaly (18.5 cm) with mild hepatic steatosis. 4. Findings suggest possible pelvic floor relaxation giving bulging laxity of the levator ani muscul ature. Correlate with patient's symptoms. 5. Moderate to advanced degenerative disc disease L4-L5 and L5-S1.
== END | disposition home or self-care (01) ==
LOC: RADCTMAIN 16:13
PROVIDERS: ATTEND Urology
DX: N20.0 Calculus of kidney (principal); K76.0 Fatty (change of) liver, not elsewhere classified
CPT/HCPCS: 74176

== ENCOUNTER → 2019-10-21 | Outpatient (CLI) | payer OTHER ==
[2019-10-21 17:29] LABS: HCT 39.4 % (34.0-46.0); HGB 12.5 gm/dL (11.4-16.0); MCH 26.4 pg (25.0-35.0); MCHC 31.7 g/dL (31.0-37.0); MCV 83.3 fL (80.0-100.0); Mean Platelet Volume 8.9; Platelet Count 206 k/uL (150-450); RBC 4.73 m/uL (3.80-5.40); RDW 14.5 % (11.5-15.5); WBC 10.1 k/uL (3.8-10.6)
== END | disposition home or self-care (01) ==
LOC: LABWHC1 17:07
PROVIDERS: ATTEND Surgery Plastic and Reconstructive Surgery
DX: Z01.812 Encounter for preprocedural laboratory examination (principal); K82.8 Other specified diseases of gallbladder
CPT/HCPCS: 85027

== ENCOUNTER → 2019-10-24 | Day surgery (SDC) | payer OTHER ==
[2019-10-21 14:50] VITALS: BMI 31.1
--- NOTE | 2019-10-23 19:27 | P.GSHP ---
History of Present Illness H&P Date: 10/24/19 CHIEF COMPLAINT: Cholecystitis HISTORY OF PRESENT ILLNESS: The patient is a 44-year-old female who presents with history of epigastric including right upper quadrant abdominal pain. She underwent diagnostic studies for her gallbladder. Separately her clinical picture was consistent with cholecystitis. Now she presents for surgical intervention. PAST MEDICAL HISTORY: Please see list PAST SURGICAL HISTORY: Please see list MEDICATIONS: Please see list ALLERGIES: Please see list SOCIAL HISTORY: Please see list FAMILY HISTORY: Please see list REVIEW OF ORGAN SYSTEMS: CONSTITUTIONAL: No reports of fevers or chills. PHYSICAL EXAM: VITAL SIGNS: Afebrile vital signs stable GENERAL: Well-developed pleasant in no acute distress. HEENT: No scleral icterus. Extraocular movements grossly intact. Moist buccal mucosa. NECK: Supple without lymphadenopathy. CHEST: Unlabored respirations. Equal bilateral excursions. CARDIOVASCULAR: Regular rate regular rhythm rhythm. Distal 2+ pulses. ABDOMEN: Soft, nondistended. MUSCULOSKELETAL: No clubbing, cyanosis, or edema. NEURO: Cranial nerves II to XII within normal limits. No focal or lateralizing signs. PSYCH: Alert and oriented to person, place and time. SKIN: Well-perfused good skin turgor. ASSESSMENT: 1. Epigastric and right upper quadrant abdominal pain 2. Chronic cholecystitis 3. Symptomatic gallstones. PLAN: 1. Will need a robotic cholecystectomy possible open. Benefits and risks were described. 2. Heparin for DVT prophylaxis 5000 units. 3. Antibiotic prophylaxis. Past Medical History Past Medical History: GERD/Reflux, Hypertension, Thyroid Disorder Additional Past Medical History / Comment(s): heart murmur, constipation, gallbladder dysfunction, hx kidney stones History of Any Multi-Drug Resistant Organisms: None Reported Past Surgical History: Bladder Surgery, Hysterectomy, Tonsillectomy, Tubal Ligation Additional Past Surgical History / Comment(s): thyroidectomy, bladde suspension, kidney stone removed Past Anesthesia/Blood Transfusion Reactions: No Reported Reaction Smoking Status: Former smoker - Past Family History Mother Family Medical History: Cancer, Deep Vein Thrombosis (DVT) Father Family Medical History: Cancer Medications and Allergies Home Medications Medication Instructions Recorded Confirmed Type Cholecalciferol [Vitamin D3] 6,000 unit PO 1200 11/05/18 10/21/19 History Escitalopram [Lexapro] 5 mg PO 1200 11/05/18 10/21/19 History Levothyroxine Sodium [Synthroid] 112 mcg PO DAILY 11/05/18 10/21/19 History Lisinopril [Zestril] 10 mg PO 1200 11/05/18 10/21/19 History Omeprazole [PriLOSEC] 40 mg PO DAILY 11/05/18 10/21/19 History Garcinia Cambogia 500 mg PO TID 10/21/19 History Polyethylene Glycol 3350 [Miralax] 17 gm PO DAILY PRN 10/21/19 10/21/19 History QUEtiapine [SEROquel] 50 mg PO BID 10/21/19 10/21/19 History Allergies Allergy/AdvReac Type Severity Reaction Status Date / Time No Known Allergies Allergy Verified 10/21/19 14:38
[~2019-10-24] MED LIST changes: +ACETAMINOPHEN TAB 500 MG TAB PO ONE; +ACETAMINOPHEN TAB 500 MG TAB PO STA; +BUPIVACAINE (PF) 0.25% 30 ML VIAL SQ ONE; +DEXAMETHASONE SOD PHOSPHATE 10 MG/ML 1 ML VIAL IV ONE; +GABAPENTIN 300 MG CAP PO STA; +GLYCOPYRROLATE 0.2 MG/ML 2 ML VIAL ONE; +HEPARIN SODIUM,PORCINE 5,000 UNIT/ML 1 ML VIAL SQ ONE; +IBUPROFEN 200 MG TAB PO ONE; +INDOCYANINE GREEN 25 MG VIAL IV ONE; +KETAMINE 10 MG/ML 20 ML VIAL ONE; +KETOROLAC 30 MG/ML 1 ML VIAL IVP ONE; +LACTATED RINGERS 1,000 ML IV ONE; +LACTATED RINGERS 1,000 ML IV SCH; +LIDOCAINE 1% 20 ML VIAL (10MG/ML) FOR IV START INTRADERMA PRN; +LIDOCAINE 1% INJ 10MG/ML (20 ML MDV) ONE; +MIDAZOLAM 2 MG/2 ML VIAL ONE; +NEOSTIGMINE 1 MG/ML 10 ML VIAL ONE; +ONDANSETRON 4 MG/2 ML VIAL IVP ONE; +PROPOFOL 10 MG/ML 20 ML VIAL IV ONE; +ROCURONIUM BROMIDE 10 MG/ML 10 ML VIAL IV ONE; +SCOPOLAMINE 1.5MG/72HR PATCH TRANSDERM STA; +SIMETHICONE 80 MG CHEWABLE PO SCH; +SUCCINYLCHOLINE CHLORIDE 100 MG/5 ML SYR IV ONE; +ceFAZolin 1,000 MG VIAL IVPB ONE; -ceFAZolin IN SWFI 2 GM/20 ML SYRINGE IVP ONE; +fentaNYL (PF) 50 MCG/ML 2 ML AMP ONE
[2019-10-24 08:58] LABS: ALT 21 U/L (4-34); AST 29 U/L (14-36); African American GFR (CKD) >90 (>60 ml/min/1.73 sqM); Albumin 4.3 g/dL (3.5-5.0); Alkaline Phosphatase 96 U/L (38-126); Anion Gap 13 mmol/L; Blood Urea Nitrogen 12 mg/dL (7-17); Calcium 8.8 mg/dL (8.4-10.2); Carbon Dioxide 21 mmol/L (22-30); Chloride 106 mmol/L (98-107); Glucose 97 mg/dL (74-99); Non-African American GFR(CKD) >90 (>60 ml/min/1.73 sqM); Potassium 4.4 mmol/L (3.5-5.1); Sodium 140 mmol/L (137-145); Total Bilirubin 0.5 mg/dL (0.2-1.3); Total Protein 7.4 g/dL (6.3-8.2)
[2019-10-24 10:47] VITALS: TEMP 97.8
[2019-10-24] MEDS: HYDROmorphone 0.5 MG/0.5 ML SYRINGE IVP PRN ×2 (10:51→10:56)
--- NOTE | 2019-10-24 10:52 | P.OP ---
Date of Procedure: 10/24/19 Description of Procedure: SURGEON: BHAVYA ELLIOTT MD PREOPERATIVE DIAGNOSES: 1. Right upper quadrant abdominal pain 2. Chronic cholecystitis 3. Anxiety disorder 4. Depressive disorder 5. Obesity due to excess calories, BMI 31.2 6. Hypothyroidism 7. Gastroesophageal reflux disease POSTOPERATIVE DIAGNOSES: 1. Right upper quadrant abdominal pain 2. Chronic cholecystitis 3. Anxiety disorder 4. Depressive disorder 5. Obesity due to excess calories, BMI 31.2 6. Hypothyroidism 7. Gastroesophageal reflux disease OPERATION: Robotic-assisted da Kevin Xi laparoscopic cholecystectomy, multiport with FIREFLY ESTIMATED BLOOD LOSS: 5 mL. SPECIMENS REMOVED: Gallbladder. COMPLICATIONS: None. OPERATIVE FINDINGS: 1. Chronic cholecystitis 2. Console time 14 minutes INDICATIONS: The patient is a 29-year-old female who presents with cholelcystitis. Surgical intervention with a laparoscopic cholecystectomy was described at length including injury to the biliary tree, bleeding, infection, need for further surgery. Informed consent was obtained. Robotic assisted laparoscopic approach was described. Benefits and risks of the procedure including but not limited to bleeding, infection, injury to the biliary tree was described. Informed consent was obtained. DESCRIPTION OF PROCEDURE: Patient was brought to the operating room, placed in supine position. After general induction, the abdomen had been prepped and draped in standard sterile fashion. The robotic da Kevin XI system was primed. After a timeout protocol was performed, the patient had been prepped and draped in standard sterile fashion. The patient was injected with indocyanine green. A 5 mm 0 degrees laparoscopic trocar entry was performed along the left upper quadrant. The abdomen insufflated to 15 mmHg pressure which was tolerated well. Diagnostic laparoscopy demonstrated no injury to bowel viscera or mesentery. The liver surface was unremarkable. Next, two 8 mm robotic ports were placed along the right upper abdomen. The camera 8-mm port was maintained along the epigastrium. Another 8 mm port was placed along the left upper abdominal wall after exchanging the 5 mm port. Please note that the ports were placed at least 10 to 15 cm away from the target anatomy of the gallbladder. The robot was docked along the left lateral abdomen. The patient was repositioned in reverse Trendelenburg position. Using a grasper for arm 3, a grasper for arm 4, including hook cautery for arm 1, the robotic system was docked and primed as described. Instruments were interchanged by the assistant corporation counsel including hook cautery, Bovie cautery and clip appliers. I had sat at the console. The gallbladder fundus was retracted over the dome of the liver. Initial attention was brought to the infundibulum which was gently retracted in the inferior lateral approach. Using a grasper, the cystic duct including the cystic artery was carefully skeletonized. FIREFLY was used to identify the cystic artery and cystic structures. A critical view of safety was obtained. Large PLASTIC clips were used throughout the entire case. Using a clip ruling machine operator 2 clips were placed proximally, and 1 clip was placed between the infundibulum and cystic duct and divided using cautery. Next, the cystic artery was similarly clipped and cauterized. Minimal decompression of the gallbladder did occur. Electro-Bovie cautery was used to remove the gallbladder from the hepatic fossa. Hemostasis was checked and found to be adequate. The robot was undocked. I re-scrubbed into the case. Using a 10 mm Endo Catch bag via the left upper quadrant incision, the specimen was removed from the abdominal cavity. All pneumoperitoneum instruments were evacuated from the abdominal cavity. The incisions were reapproximated using 4-0 Monocryl in an interrupted subcuticular fashion. Fascial defects were less than 8 mm in size. Please note along the trocar sites, local anesthetic was placed as a field block prior to insertion of all instruments. Liquid glue was applied to the skin. At the end of the procedure needle, sponge, and instrument count had been verified correct by the surgical services assistant. The patient was transferred to postanesthesia care unit in stable condition. Intraoperative films were shared with the patient's family who were very pleased with the level of care. Plan - Discharge Summary Discharge Rx Participant: Yes New Discharge Prescriptions: New Ibuprofen [Motrin] 600 mg PO Q8HR PRN #30 tab PRN Reason: Pain Simethicone 40 mg/0.6 ml Drops [Mylicon Drops] 80 mg PO PCHS #30 ml Acetaminophen Tab [Tylenol Tab] 1,000 mg PO Q6HR PRN #30 tablet Continue Escitalopram [Lexapro] 5 mg PO 1200 Lisinopril [Zestril] 10 mg PO 1200 Cholecalciferol [Vitamin D3 (25 Mcg = 1000 Iu)] 6,000 unit PO 1200 Omeprazole [PriLOSEC] 40 mg PO DAILY Levothyroxine Sodium [Synthroid] 112 mcg PO DAILY Polyethylene Glycol 3350 [Miralax] 17 gm PO DAILY PRN PRN Reason: Constipation QUEtiapine [SEROquel] 50 mg PO BID Discontinued Garcinia Cambogia 500 mg PO TID Discharge Medication List Cholecalciferol [Vitamin D3 (25 Mcg = 1000 Iu)] 6,000 unit PO 1200 11/05/18 [History] Escitalopram [Lexapro] 5 mg PO 1200 11/05/18 [History] Levothyroxine Sodium [Synthroid] 112 mcg PO DAILY 11/05/18 [History] Lisinopril [Zestril] 10 mg PO 1200 11/05/18 [History] Omeprazole [PriLOSEC] 40 mg PO DAILY 11/05/18 [History] Polyethylene Glycol 3350 [Miralax] 17 gm PO DAILY PRN 10/21/19 [History] QUEtiapine [SEROquel] 50 mg PO BID 10/21/19 [History] Acetaminophen Tab [Tylenol Tab] 1,000 mg PO Q6HR PRN #30 tablet 10/24/19 [Rx] Ibuprofen [Motrin] 600 mg PO Q8HR PRN #30 tab 10/24/19 [Rx] Simethicone 40 mg/0.6 ml Drops [Mylicon Drops] 80 mg PO PCHS #30 ml 10/24/19 [Rx] Follow up Appointment(s)/Referral(s): Bhavya Elliott MD [STAFF PHYSICIAN] - 10/28/19 Patient Instructions/Handouts: Laparoscopic Cholecystectomy (DC) Activity/Diet/Wound Care/Special Instructions: No lifting over 10 pounds in 2 weeks until Nov 07. January shower. No bath tub soaks for two weeks until Nov 07 Diet as tolerated. No driving while on narcotics. Use Tylenol and ibuprofen or Aleve scheduled for the next 24-48 hours for best pain relief. Use ice along incisions for the today to prevent swelling. Discharge Disposition: HOME SELF-CARE
[2019-10-24] MEDS: MEPERIDINE 50 MG/ML SYRINGE IVP ONE ×2 (11:04→11:16)
[2019-10-24 11:37] VITALS: RESP 16
[2019-10-24 12:52] VITALS: BP 166/82; PULSE 91
== END | disposition home or self-care (01) ==
LOC: OR 07:33
PROVIDERS: ATTEND Surgery Plastic and Reconstructive Surgery
DX: K81.1 Chronic cholecystitis (principal); I11.9 Hypertensive heart disease without heart failure; F41.9 Anxiety disorder, unspecified; F32.9 Major depressive disorder, single episode, unspecified; K21.9 Gastro-esophageal reflux disease without esophagitis; E89.0 Postprocedural hypothyroidism; E66.9 Obesity, unspecified; Z79.890 Hormone replacement therapy; Z79.899 Other long term (current) drug therapy; Z90.710 Acquired absence of both cervix and uterus; Z87.442 Personal history of urinary calculi; Z98.51 Tubal ligation status; Z87.891 Personal history of nicotine dependence; Z82.49 Family history of ischemic heart disease and other diseases of the circulatory system; Z80.9 Family history of malignant neoplasm, unspecified; Z68.31 Body mass index [BMI] 31.0-31.9, adult
CPT/HCPCS: 88304; 80053; 47562; J2250; J1644; J2710; J2175; J2405; J0690; J2001; J3010; J1885; J0330; J2704; J1170

== ENCOUNTER → 2019-11-04 | Outpatient (CLI) | payer OTHER ==
--- NOTE | 2019-11-04 15:35 | P.SLEEP ---
History of Present Illness H&P Date: 11/04/19 Chief Complaint: Snoring This is a 44-year-old female patient was referred to me for evaluation of sleep apnea. The patient has loud snoring and this seems to be her main complaint. She has some limited tiredness and fatigue he had she works as a newspaper distributor. She works between 2 AM and 6 AM in the morning. She gets home and she goes to bed at 8 AM when she wakes up around noon. She takes another nap or asleep between 10 PM and 1 AM in the morning. She is a bit sleepy and tired. She is able to function at work that she does not fall sleep was driving. She has loud snoring and she has been told to quit breathing at nighttime. No major weight gain over the years. No substance abuse. No alcoholism. Sleep apnea runs in her family. She has history of Graves' disease and she has undergone a total thyroidectomy. She has chronic anxiety taking a combination of Lexapro and Seroquel. No previous evaluations been done on this patient and she is an ex-smoker. No sleepwalking. No sleep talking. No parasomnias. no episodes of waking up in the middle of the night with panic or anxiety. No sleep paralysis. No hallucinations. No cataplexy. No restlessness in the lower extremities. Review of Systems Constitutional: Reports daytime sleepiness, Reports fatigue Eyes: denies as per HPI, denies blurred vision, denies bulging eye, denies decreased vision, denies diplopia, denies discharge, denies dry eye, denies irritation, denies itching, denies pain, denies photophobia, denies loss of peripheral vision, denies loss of vision, denies tunnel vision/blind spots Ears: deny: decreased hearing, ear discharge, earache, tinnitus Ears, nose, mouth and throat: Denies headache, Denies sore throat Breasts: absent: as per HPI, change in shape, gynecomastia, masses, nipple discharge, pain, skin changes, swelling Cardiovascular: Reports as per HPI Respiratory: Reports as per HPI Gastrointestinal: Reports as per HPI Genitourinary: Reports as per HPI Musculoskeletal: Reports as per HPI Musculoskeletal: absent: ankle pain, ankle stiffness, ankle swelling, as per HPI, elbow pain, elbow stiffness, elbow swelling, foot pain, foot stiffness, foot swelling, hand pain, hand stiffness, hand swelling, hip pain, hip stiffness, hip swelling, knee pain, knee stiffness, knee swelling, shoulder pain, shoulder stiffness, shoulder swelling, wrist pain, wrist stiffness, wrist swelling Integumentary: Reports as per HPI Neurological: Reports as per HPI Psychiatric: Reports anxiety Endocrine: Reports as per HPI Hematologic/Lymphatic: Reports as per HPI Allergic/Immunologic: Reports as per HPI Past Medical History Past Medical History: GERD/Reflux, Hypertension, Thyroid Disorder Additional Past Medical History / Comment(s): Grave's disease, heart murmur, constipation, gallbladder dysfunction post cholecystectomy, hx kidney stones History of Any Multi-Drug Resistant Organisms: None Reported Past Surgical History: Bladder Surgery, Hysterectomy, Tonsillectomy, Tubal Ligation Additional Past Surgical History / Comment(s): thyroidectomy, bladder suspension, kidney stone removed Past Anesthesia/Blood Transfusion Reactions: No Reported Reaction Smoking Status: Former smoker - Past Family History Mother Family Medical History: Cancer, Deep Vein Thrombosis (DVT) Father Family Medical History: Cancer Medications and Allergies Home Medications Medication Instructions Recorded Confirmed Type Cholecalciferol [Vitamin D3 (25 6,000 unit PO 1200 11/05/18 10/24/19 History Mcg = 1000 Iu)] Escitalopram [Lexapro] 5 mg PO 1200 11/05/18 10/24/19 History Levothyroxine Sodium [Synthroid] 112 mcg PO DAILY 11/05/18 10/24/19 History Lisinopril [Zestril] 10 mg PO 1200 11/05/18 10/24/19 History Omeprazole [PriLOSEC] 40 mg PO DAILY 11/05/18 10/24/19 History Polyethylene Glycol 3350 [Miralax] 17 gm PO DAILY PRN 10/21/19 10/24/19 History QUEtiapine [SEROquel] 50 mg PO BID 10/21/19 10/24/19 History Acetaminophen Tab [Tylenol Tab] 1,000 mg PO Q6HR PRN #30 tablet 10/24/19 Rx Ibuprofen [Motrin] 600 mg PO Q8HR PRN #30 tab 10/24/19 Rx Simethicone 40 mg/0.6 ml Drops 80 mg PO PCHS #30 ml 10/24/19 Rx [Mylicon Drops] Allergies Allergy/AdvReac Type Severity Reaction Status Date / Time No Known Allergies Allergy Verified 10/24/19 08:04 Physical Exam The patient appeared well nourished and normally developed. Vital signs as documented. Head exam is unremarkable. No scleral icterus or corneal arcus n oted. Neck is without jugular venous distension, thyromegaly, or carotid bruits. Carotid upstrokes are brisk bilaterally. Lungs are clear to auscultation and percussion. Cardiac exam reveals the PMI to be normally sized and situated. Rhythm is regular. First and second heart sounds normal. No murmurs, rubs or gallops. Abdominal exam reveals normal bowel sounds, no masses, no organomegaly and no aortic enlargement. Extremities are nonedematous and both femoral and pedal pulses are normal.Examination of the skin revealed no evidence of significant rashes, suspicious appearing nevi or other concerning lesions. Assessment and Plan Plan: 1 loud snoring with a possibility of obstructive sleep apnea. The patient has limited fatigue and some degree of sleepiness with an [place] score of 8\ 2 obesity with a BMI of 30.2 3 chronic fatigue 4 history of Graves' disease with a previous thyroidectomy 5 history of chronic anxiety 6 hypertension 7 acid reflux PLAN We will going to set up this patient for a morning polysomnogram regarding the possibility of obstructive sleep apnea Encourage weight loss Implement good sleep hygiene measures Continue same medications We'll follow Sleep Note - Sleep Data Previous Sleep Study: No - Sleep Note Sleep Note: Temperature: 97.8 Pulse Rate: 82 Respiratory Rate: 16 Blood Pressure: 111/74 SpO2: 96 Height: 5'3 Weight: 171 BMI: 30.2 Neck Circumference: 14 1/2
== END | disposition home or self-care (01) ==
LOC: SLEEP 14:46
PROVIDERS: ATTEND Internal Medicine Critical Care Medicine
DX: G47.8 Other sleep disorders (principal); R06.83 Snoring; R53.82 Chronic fatigue, unspecified; E66.9 Obesity, unspecified; E89.0 Postprocedural hypothyroidism; I10 Essential (primary) hypertension; K21.9 Gastro-esophageal reflux disease without esophagitis; Z87.891 Personal history of nicotine dependence; Z86.59 Personal history of other mental and behavioral disorders; Z68.30 Body mass index [BMI] 30.0-30.9, adult; Z79.890 Hormone replacement therapy; Z79.1 Long term (current) use of non-steroidal anti-inflammatories (NSAID); Z79.899 Other long term (current) drug therapy
CPT/HCPCS: 99211

== ENCOUNTER → 2019-11-18 | Outpatient (CLI) | payer OTHER ==
--- NOTE | 2019-11-18 10:40 | US ---
EXAMINATION TYPE: US abdomen comp/pelvis limited DATE OF EXAM: 11/18/2019 COMPARISON: None CLINICAL HISTORY: 44-year-old female G89.18 Other acute postprocedural pain. Pain, gallbladder remove d 3 weeks ago. TECHNIQUE: Multiple sonographic images of the abdomen and bladder are obtained. FINDINGS: EXAM MEASUREMENTS: Liver Length: 18.1 cm Gallbladder: Surgically absent CBD: 0.8 cm Spleen: 11.3 cm Right Kidney: 10.6 x 3.9 x 3.6 cm Left Kidney: 11.6 x 4.6 x 4.1 cm Pancreas: Suboptimal visualization pancreatic head and tail due to shadowing from bowel gas. Visuali zed pancreatic body shows no gross abnormality. Liver: Mildly enlarged and echogenic. No focal lesion seen. Gallbladder: Surgically absent CBD: wnl Spleen: wnl Right Kidney: 3 mm Echogenic area lower pole. No hydronephrosis. Left Kidney: 4 mm echogenic area mid pole. No hydronephrosis. Upper IVC: wnl Abd Aorta: wnl Bladder: Partial distention of the bladder limits its evaluation. Bilateral Jets Seen Yes Additional targeted scanning at the site of patient's pain within the left mid abdomen shows some sha dowing loops of bowel. IMPRESSION: 1. Increased echogenicity suggesting mild to moderate hepatic steatosis. 2. Mildly dilated bile duct at 8 mm probably due to postcholecystectomy status. Correlate with alkali ne phosphatase and bilirubin levels to confirm. 3. Nonobstructive renal calculi measuring up to 4 mm. No hydronephrosis. 4. Both ureteral jets are visualized. 5. Targeted scanning along the left mid abdomen at the site of patient's pain shows some shadowing re lated to air within loops of small bowel. No specific sonographic abnormality is seen here.
== END | disposition home or self-care (01) ==
LOC: RADUSWWP 08:48
PROVIDERS: ATTEND Family Medicine
DX: K83.8 Other specified diseases of biliary tract (principal); N20.0 Calculus of kidney
CPT/HCPCS: 76700; 76857

== ENCOUNTER → 2019-12-04 | Outpatient (CLI) | payer OTHER ==
--- NOTE | 2019-12-08 09:10 | MM ---
Reason for exam: screening (asymptomatic). Last mammogram was performed 1 year and 2 months ago. Physical Findings: A clinical breast exam by your physician is recommended on an annual basis and results should be correlated with mammographic findings. MG Screening Mammo w CAD Bilateral CC and MLO view(s) were taken. Prior study comparison: October 17, 2018, bilateral MG diagnostic mammo w CAD [facility]. March 25, 2018, left breast MG diagnostic mammo LT w CAD. The breast tissue is heterogeneously dense. This may lower the sensitivity of mammography. No significant changes when compared with prior studies. ASSESSMENT: Benign, BI-RAD 2 RECOMMENDATION: Routine screening mammogram of both breasts in 1 year.
== END | disposition home or self-care (01) ==
LOC: RADMAMWWP 13:56
PROVIDERS: ATTEND Family Medicine
DX: Z12.31 Encounter for screening mammogram for malignant neoplasm of breast (principal)
CPT/HCPCS: 77067

== ENCOUNTER → 2019-12-10 | Outpatient (CLI) | payer OTHER | END | disposition home or self-care (01) | CPT/HCPCS: 74176 ==

== ENCOUNTER → 2020-03-03 | Outpatient (CLI) | payer OTHER ==
--- NOTE | 2020-03-03 10:09 | MR ---
EXAMINATION TYPE: MR brain wo/w con DATE OF EXAM: 03/03/2020 COMPARISON: NONE HISTORY: Frequent recurring headaches with exercise TECHNIQUE: Multiplanar, multisequence images of the brain and brainstem is performed without and with IV contras t, utilizing 7.5 mL intravenous Gadavist . FINDINGS: Diffusion weighted images demonstrate no evidence of a recent infarct or other diffusion ab normality. There is no worrisome extra-axial fluid collection. The ventricular system and cisternal spaces are normal in size and appearance. The brain volume is age appropriate. Occasional focus of T2 hyperintensity scattered throughout the white matter bilaterally. Less than 4 lesions are seen inc luding a dominant 3 to 4 mm left frontal lesion axial image 17. Midline structures demonstrate normal morphology. The craniocervical junction appears within normal limits. Post contrast images demonstrate no abnormal enhancement. The dural venous sinuses appear pa tent. The visualized sinuses are clear and the globes are intact. IMPRESSION: Minimal nonspecific white matter changes otherwise unremarkable study.
== END | disposition home or self-care (01) ==
LOC: RADMRIMAIN 08:06
PROVIDERS: ATTEND Physician Assistant
DX: R90.82 White matter disease, unspecified (principal); G44.84 Primary exertional headache
CPT/HCPCS: 70553; A9585

== ENCOUNTER → 2020-03-19 | Outpatient (CLI) | payer OTHER ==
--- NOTE | 2020-03-19 15:51 | US ---
EXAMINATION TYPE: US transvaginal DATE OF EXAM: 03/19/2020 COMPARISON: NONE CLINICAL HISTORY: R10.32 LLQ PAIN. LLQ pain, Uterus and right ovary removed x 1 year ago TECHNIQUE: Transvaginal (TV). Date of LMP: UNKNOWN EXAM MEASUREMENTS: Uterus: Surgically absent Endometrial Stripe: Surgically absent Left Ovary: 2.6 x 1.4 x 1.4 cm 1. Uterus: Surgically absent 2. Endometrium: Surgically absent 3. Right Ovary: Surgically absent 4. Left Ovary: simple appearing cyst measuring 1.2 x 1.0 x 1.2cm 5. Bilateral Adnexa: wnl 6. Posterior cul-de-sac: wnl IMPRESSION: 1. Very small left ovarian cyst
== END | disposition home or self-care (01) ==
LOC: RADUSWWP 14:39
PROVIDERS: ATTEND Family Medicine
DX: N83.202 Unspecified ovarian cyst, left side (principal); R10.32 Left lower quadrant pain
CPT/HCPCS: 76830

== ENCOUNTER → 2020-04-06 | Outpatient (CLI) | payer OTHER ==
--- NOTE | 2020-04-06 22:00 | MR ---
EXAMINATION TYPE: MR lumbar spine wo con DATE OF EXAM: 04/06/2020 COMPARISON: HISTORY: Lower back pain, Center and mainly left sided into left hip and upper leg Multiplanar multiecho imaging of the lumbar spine was performed without contrast. FINDINGS: Lumbar vertebra have normal alignment. There is mild uniform narrowing of lumbar disc spaces. There i s minimal posterior disc bulging from L2 to S1. There is developmentally large spinal canal. There is no spinal stenosis. Lumbar nerve roots appear normal. The neuroforamina are fairly well-maintained. There is no compression fracture. The posterior elements appear intact. There is no lumbar paraspinal mass. I see no focal bone destruction. IMPRESSION: Minor degenerative disc changes in the lumbar spine. No fracture. No spinal stenosis. Minimal posteri or disc bulging at multiple levels.
== END | disposition home or self-care (01) ==
LOC: RADMRIMAIN 16:11
PROVIDERS: ATTEND Psychiatry & Neurology Neurology
DX: M51.87 Other intervertebral disc disorders, lumbosacral region (principal); M51.36 Other intervertebral disc degeneration, lumbar region
CPT/HCPCS: 72148

== ENCOUNTER → 2020-07-28 | Outpatient (CLI) | payer OTHER ==
--- NOTE | 2020-07-29 12:31 | US ---
EXAMINATION TYPE: US transvaginal DATE OF EXAM: 07/28/2020 COMPARISON: Pelvic ultrasound 03/19/2020 CLINICAL HISTORY: N83.209 Cyst of ovary. Left ovarian cyst, partial hysterectomy, patient unsure if r ight ovary remains TECHNIQUE: TV. Transvaginal sonographic images Date of LMP: hysterectomy EXAM MEASUREMENTS: Uterus: Surgically absent Endometrial Stripe: Surgically absent Right Ovary: not seen Left Ovary: 2.0 x 1.7 x 1.8 cm 1. Uterus: Surgically absent 2. Endometrium: Surgically absent 3. Right Ovary: not seen due to bowel gas versus oophorectomy 4. Left Ovary: 1.2 x 1.1 x 0.9 cm simple unilocular follicle versus benign cyst. 5. Bilateral Adnexa: Normal 6. Posterior cul-de-sac: No pelvic free fluid. IMPRESSION: Unchanged 1.2 cm simple left ovarian follicle versus tiny benign cyst. No follow-up is re commended.
== END | disposition home or self-care (01) ==
LOC: RADUSWWP 15:18
PROVIDERS: ATTEND Family Medicine
DX: N83.209 Unspecified ovarian cyst, unspecified side (principal)
CPT/HCPCS: 76830

== ENCOUNTER → 2020-11-17 | Outpatient (CLI) | payer OTHER ==
--- NOTE | 2020-11-17 10:55 | ECHOF ---
Referral Reason:I34.0 mitral valve insufficiency MEASUREMENTS -------- HEIGHT: 157.5 cm WEIGHT: 77.1 kg BP: RVIDd: 3.2 cm (< 3.3) IVSd: 0.9 cm (0.6 - 1.1) LVIDd: 4.2 cm (3.9 - 5.3) LVPWd: 0.9 cm (0.6 - 1.1) IVSs: 1.7 cm LVIDs: 2.2 cm LVPWs: 1.7 cm LAESV Index (A-L): 25.06 ml/m Ao Diam: 3.0 cm (2.0 - 3.7) AV Cusp: 2.4 cm (1.5 - 2.6) LA Diam: 3.2 cm (2.7 - 3.8) MV EXCURSION: 13.015 mm (> 18.000) MV EF SLOPE: 72 mm/s (70 - 150) EPSS: 0.4 cm MV E Chuck: 0.86 m/s MV DecT: 210 ms MV A Chuck: 0.74 m/s MV E/A Ratio: 1.16 AR PHT: 1849 ms RAP: 5.00 mmHg RVSP: 12.42 mmHg FINDINGS -------- This was a technically good study. The left ventricular size is normal. Left ventricular wall thickness is normal. Overall left vent ricular systolic function is normal with, an EF between 55 - 60 %. The diastolic filling pattern is normal for the age of the patient 9.34. The right ventricle is normal in size. The left atrial size is normal. Normal LA size by volume 22+/-6 ml/m2. The right atrial size is normal. The aortic valve is trileaflet and appears structurally normal. There is mild aortic regurgitation. The mitral valve is normal. The mitral valve leaflets are mildly thickened. Mild mitral regurgita tion is present. The tricuspid valve appears structurally normal. Trace tricuspid regurgitation present. Right jonathan tricular systolic pressure is normal at < 35 mmHg. There is no pulmonic regurgitation present. The aortic root size is normal. Normal inferior vena cava with normal inspiratory collapse consistent with estimated right atrial pre ssure of 5 mmHg. There is no pericardial effusion. CONCLUSIONS -------- 1. The left ventricular size is normal. 2. Left ventricular wall thickness is normal. 3. Overall left ventricular systolic function is normal with, an EF between 55 - 60 %. 4. The diastolic filling pattern is normal for the age of the patient 9.34 5. There is mild aortic regurgitation. 6. The mitral valve leaflets are mildly thickened. 7. Mild mitral regurgitation is present. 8. Trace tricuspid regurgitation present. 9. There is no pericardial effusion. PASTORAL COUNSELOR: Mera Gage RDCS
--- NOTE | 2020-11-17 16:39 | EEG ---
ELECTROENCEPHALOGRAM REPORT DATE OF SERVICE: 11/17/2020 CLINICAL HISTORY: This is a 45-year-old woman who was having dizzy spells. The video EEG is obtained to evaluate for seizure and epileptiform activity. Relevant medication is unknown. EEG TYPE: A routine 21 channel EEG is performed using the 10/20 electrode placement system. DESCRIPTION: Wakefulness and drowsiness are obtained. During wakefulness, there is a posterior dominant rhythm of low to moderate voltage, reactive, well modulated, of 9-10 hertz activity. During drowsiness, there is slowing and attenuation of the background activity. There is no physiological stage II sleep. There is no focal slowing. Interictal and ictal: None. ACTIVATION PROCEDURE: Photic stimulation did evoke a posterior driving response at multiple flash frequencies. There is no abnormality seen during photic stimulation. Hyperventilation is performed and no abnormality is seen. CLINICAL INTERPRETATION: This is a normal routine EEG. There are no focal slowing, epileptiform discharges or seizure on the EEG. Clinical correlation is recommended. MIKE / JOSE CARLOSN: [id number] / GIGI
== END | disposition home or self-care (01) ==
LOC: NEUROMAIN 07:59
PROVIDERS: ATTEND Family Medicine
DX: I34.0 Nonrheumatic mitral (valve) insufficiency (principal); G40.A09 Absence epileptic syndrome, not intractable, without status epilepticus
CPT/HCPCS: 93306; 95816

== ENCOUNTER → 2021-03-17 | Outpatient (CLI) | payer OTHER ==
--- NOTE | 2021-03-18 12:40 | MM ---
Reason for exam: screening (asymptomatic). Last mammogram was performed 1 year and 3 months ago. Physical Findings: A clinical breast exam by your physician is recommended on an annual basis and results should be correlated with mammographic findings. MG Screening Mammo w CAD Bilateral CC and MLO view(s) were taken. Prior study comparison: December 04, 2019, bilateral MG screening mammo w CAD. October 17, 2018, bilateral MG diagnostic mammo w CAD [facility]. The breast tissue is heterogeneously dense. This may lower the sensitivity of mammography. ASSESSMENT: Negative, BI-RAD 1 RECOMMENDATION: Routine screening mammogram of both breasts in 1 year.
== END | disposition home or self-care (01) ==
LOC: RADMAMWWP 13:47
PROVIDERS: ATTEND Family Medicine
DX: Z12.31 Encounter for screening mammogram for malignant neoplasm of breast (principal)
CPT/HCPCS: 77067

== ENCOUNTER → 2021-05-04 | Outpatient (CLI) | payer OTHER ==
--- NOTE | 2021-05-04 16:38 | MR ---
EXAMINATION TYPE: MR lumbar spine wo con DATE OF EXAM: 05/04/2021 COMPARISON: 04/06/2020 HISTORY: Left side lower back pain into Left Thigh for a few years CONTRAST: 0 mL intravenous Gadavist. TECHNIQUE: Multiplanar, multisequence images of the lumbar spine were acquired. FINDINGS: Cord terminates at the L1-2 level L5-S1: Disc space narrowing is present. Minimal residual bulge has anterior thecal sac contact. No sp inal canal stenosis or neural foraminal stenosis is present. Mild facet hypertrophy is present. L4-L5: Disc bulge is present with mild anterior thecal sac flattening. No AP spinal canal stenosis is present. Neural foramen are patent. L3-L4: Mild disc bulges anterior thecal sac flattening. No AP spinal canal stenosis is present. Facet hypertrophy with mild ligamentum flavum laxity is posterior lateral thecal sac compression. L2-L3: No significant disc bulge or disc herniation. No spinal canal stenosis. No foraminal stenosi s. L1-L2: Mild right paracentral disc bulging is mild anterior thecal sac compression. No spinal canal s tenosis or neural foraminal stenosis is present. Mild facet hypertrophy is present. T12-L1: No significant disc bulge or disc herniation. No spinal canal stenosis. No foraminal stenos is. IMPRESSION: 1. Mild disc bulging discussed above. No focal disc herniations are evident. 2. Mild asymmetric disc bulging at L1-2 and the right paracentral canal mild anterior thecal sac comp ression. 3. Mild facet hypertrophy
== END | disposition home or self-care (01) ==
LOC: RADMRIMAIN 12:37
PROVIDERS: ATTEND Psychiatry & Neurology Neurology
DX: M51.86 Other intervertebral disc disorders, lumbar region (principal); M47.896 Other spondylosis, lumbar region
CPT/HCPCS: 72148

== ENCOUNTER → 2022-03-02 | Outpatient (CLI) | payer OTHER ==
--- NOTE | 2022-03-03 11:50 | US ---
EXAMINATION TYPE: US kidneys/renal and bladder DATE OF EXAM: 03/02/2022 COMPARISON: CT, US CLINICAL HISTORY: N20.0 KIDNEY STONE. Hx kidney stones. Hx stone removed. EXAM MEASUREMENTS: Right Kidney: 11.5 x 5.9 x 4.5 cm Left Kidney: 11.2 x 5.3 x 5.1 cm Right Kidney: Renal pelvis appears to be dilated. Hyperechoic focus with twinkle artifact seen lower pole: 0.4 x 0.5 x 0.4 cm. Left Kidney: Appearance of possible column of Gary. Bladder: Appears anechoic. Bilateral Jets seen: Yes IMPRESSION: 1. Nonobstructing right renal stone. There is some mild prominence of the right renal pelvis of uncer tain etiology.
== END | disposition home or self-care (01) ==
LOC: RADUSWWP 15:25
PROVIDERS: ATTEND Urology
DX: N20.0 Calculus of kidney (principal)
CPT/HCPCS: 76770

== ENCOUNTER → 2022-05-05 | Outpatient (CLI) | payer OTHER ==
--- NOTE | 2022-05-08 08:36 | MM ---
Reason for Exam: Screening (asymptomatic). Last mammogram was performed 1 year(s) and 2 month(s) ago. Patient History: Menarche at age 13. First Full-Term at age 19. Left ovary removed at age 44. Right ovary removed at age 44. Hysterectomy at age 44. Risk Values: Shanelle 5 year model risk: 0.6%. NCI Lifetime model risk: 6.9%. Prior Study Comparison: 10/17/2018 Bilateral Diagnostic Mammogram, [facility]. 12/04/2019 Bilateral Screening Mammogram, [facility]. 03/17/2021 Bilateral Screening Mammogram, [facility]. Tissue Density: The breast tissue is heterogeneously dense. This may lower the sensitivity of mammography. Findings: Analyzed By CAD. There is no suspicious group of microcalcifications or new suspicious mass in either breast. No significant change from prior exams. Overall Assessment: Benign, BI-RAD 2 Management: Screening Mammogram of both breasts in 1 year. A clinical breast exam by your physician is recommended on an annual basis and results should be correlated with mammographic findings. Electronically signed and approved by: Vinicius Singletary D.O.
== END | disposition home or self-care (01) ==
LOC: RADMAMWWP 16:09
PROVIDERS: ATTEND Family Medicine
DX: Z12.31 Encounter for screening mammogram for malignant neoplasm of breast (principal)
CPT/HCPCS: 77067

== ENCOUNTER → 2022-12-19 | Outpatient (CLI) | payer OTHER ==
--- NOTE | 2022-12-19 16:58 | US ---
EXAMINATION TYPE: US renals and bladder DATE OF EXAM: 12/19/2022 COMPARISON: US, CT 12/10/2019 CLINICAL HISTORY: R10.9 UNSPECIFIED ABDOMINAL PAIN. PT states flank pain and pain with urination EXAM MEASUREMENTS: Right Kidney: 11.4 x 4.9 x 5.1 cm Left Kidney: 11.5 x 4.8 x 5.0 cm Right Kidney: Mild hydro, possible calculi lower pole= 0.7 cm Left Kidney: No evidence of hydro, possible calculi scattered throughout, largest lower pole 0.5 cm Bladder: wnl Bilateral Jets seen: Yes No masses are identified. The urinary bladder is anechoic. Bilateral ureteral jets are seen. IMPRESSION: 1. Mild right hydronephrosis. No evidence of left obstructive uropathy. Consider CT renal stone prot ocol for evaluation for obstructive uropathy. 2. Left 5 mm renal calculus. 3. Right probable renal calculus measuring 7 mm.
== END | disposition home or self-care (01) ==
LOC: RADUSWWP 16:26
PROVIDERS: ATTEND Family Medicine
DX: N20.0 Calculus of kidney (principal); N13.30 Unspecified hydronephrosis
CPT/HCPCS: 76770

== ENCOUNTER 2022-12-23 10:10 | Emergency (ER) | payer OTHER ==
[2022-12-23 10:15] VITALS: RESP 16; TEMP 97.5
[2022-12-23] MEDS ORDERED: SODIUM CHLORIDE 0.9% 1,000 ML IV STA (10:36)
[2022-12-23] MEDS ORDERED: KETOROLAC 15 MG/ML 1 ML VIAL IVP STA (10:36)
--- NOTE | 2022-12-23 10:41 | ED ---
General Adult HPI - General Chief complaint: Abdominal Pain Stated complaint: kidney stone Time Seen by Provider: 12/23/22 10:25 Source: patient, RN notes reviewed, old records reviewed Mode of arrival: ambulatory - History of Present Illness Initial comments: This is a nontoxic-appearing 47-year-old female that presents to the emergency room with complaints of left flank pain and right groin pain ongoing for the past 5 weeks. Did see her primary care Dr Connolly who ordered an ultrasound which was performed on December 19 showing kidney stones. States she does have an appointment with a urologist in [place] named Dr. Miranda next week. Patient was told to come to the emergency room if pain worsened. No nausea, vomiting or fevers. States that she has pain in her urethra. She has history of renal calculi, GERD, cholecystectomy and hysterectomy. -: week(s) (5) Location: left (flank), right (groin) Severity scale (1-10): 8 Quality: constant Associated Symptoms: other ("urethral pain") - Related Data Home Medications Medication Instructions Recorded Confirmed Cholecalciferol [Vitamin D3 (25 6,000 unit PO 1200 11/05/18 10/24/19 Mcg = 1000 Iu)] Escitalopram [Lexapro] 5 mg PO 1200 11/05/18 10/24/19 Levothyroxine Sodium [Synthroid] 112 mcg PO DAILY 11/05/18 10/24/19 Omeprazole [PriLOSEC] 40 mg PO DAILY 11/05/18 10/24/19 lisinopriL [Zestril] 10 mg PO 1200 11/05/18 10/24/19 QUEtiapine [SEROquel] 50 mg PO BID 10/21/19 10/24/19 polyethylene glycoL 3350 [Miralax] 17 gm PO DAILY PRN 10/21/19 10/24/19 Previous Rx's Medication Instructions Recorded Acetaminophen Tab [Tylenol Tab] 1,000 mg PO Q6HR PRN #30 tablet 10/24/19 Ibuprofen [Motrin] 600 mg PO Q8HR PRN #30 tab 10/24/19 Simethicone 40 mg/0.6 ml Drops 80 mg PO PCHS #30 ml 10/24/19 [Mylicon Drops] Ketorolac [Toradol] 10 mg PO Q8HR #15 tab 12/23/22 Tamsulosin [Flomax] 0.4 mg PO DAILY #7 cap 12/23/22 Allergies Allergy/AdvReac Type Severity Reaction Status Date / Time No Known Allergies Allergy Verified 12/23/22 10:12 Review of Systems ROS Statement: Those systems with pertinent positive or pertinent negative responses have been documented in the HPI. ROS Other: All systems not noted in ROS Statement are negative. Past Medical History Past Medical History: GERD/Reflux, Hypertension, Thyroid Disorder Additional Past Medical History / Comment(s): Grave's disease, heart murmur, constipation, gallbladder dysfunction post cholecystectomy, hx kidney stones History of Any Multi-Drug Resistant Organisms: None Reported Past Surgical History: Bladder Surgery, Cholecystectomy, Hysterectomy, Tonsillectomy, Tubal Ligation Additional Past Surgical History / Comment(s): thyroidectomy, bladder suspension, kidney stone removed Past Anesthesia/Blood Transfusion Reactions: No Reported Reaction Past Psychological History: Anxiety Smoking Status: Never smoker Past Alcohol Use History: None Reported Past Drug Use History: None Reported - Past Family History Mother Family Medical History: Cancer, Deep Vein Thrombosis (DVT) Father Family Medical History: Cancer General Exam General appearance: alert, in no apparent distress Head exam: Present: atraumatic Eye exam: Present: normal appearance. Absent: scleral icterus, conjunctival injection, periorbital swelling, periorbital tenderness ENT exam: Present: mucous membranes moist Neck exam: Absent: meningismus Respiratory exam: Present: normal lung sounds bilaterally. Absent: respiratory distress, accessory muscle use Cardiovascular Exam: Present: regular rate GI/Abdominal exam: Present: soft. Absent: distended, tenderness, guarding, rebound, rigid Extremities exam: Present: normal capillary refill. Absent: pedal edema Back exam: Present: normal inspection. Absent: tenderness, CVA tenderness (R), CVA tenderness (L), rash noted Neurological exam: Present: alert, oriented X3, normal gait Psychiatric exam: Present: normal affect, normal mood Skin exam: Present: warm, dry, normal color. Absent: cyanosis, diaphoretic, petechiae, pallor Course Vital Signs 12/23/22 12/23/22 12/23/22 10:12 10:59 11:47 Temperature 97.5 F L Pulse Rate 76 74 72 Respiratory 16 16 16 Rate Blood Pressure 144/82 118/61 128/77 O2 Sat by Pulse 99 96 99 Oximetry 12/23/22 12:26 Temperature Pulse Rate 63 Respiratory 16 Rate Blood Pressure 120/77 O2 Sat by Pulse 98 Oximetry Medical Decision Making - Medical Decision Making Patient had an ultrasound of the renals and bladder on 12/19/2022, shows a mild right hydronephrosis with no evidence of obstructive uropathy. Left 5 mm renal calculus. Right probable renal calculus measuring 7 mm. Right kidney: Mild [place] possible calculate lower 0.7 cm Left kidney with no evidence of hydro-, possible calculi scattered throughout, just lower pole 0.[address] today shows an obstructing 0.2 cm calcification in the right distal ureter just above the UVJ. Minimal right hydronephrosis and hydroureter is present. Labs show no evidence of leukocytosis. Urinalysis is clear with no evidence of blood. Patient did not get relief with Toradol requesting additional pain medication which was provided. Patient states that she is currently taking Keflex prescribed by her doctor on Sunday. She states that she also has a pain management doctor and is unable to obtain prescription for any narcotic pain medications which would void her contract. She is agreeable to a script for Toradol and Flomax. She was directed to keep her appointment with her urologist Dr. Erickson in [place] next week. Patient discharged with family agreeable to this plan of care. Case discussed with Dr. Moody Was pt. sent in by a medical professional or institution ([facility], [employer]EL[employer], urgent care, hospital, or residential...) When possible be specific @ -No Did you speak to anyone other than the patient for history (EMS, parent, family, police, friend...)? What history was obtained from this source @ -No Did you review nursing and triage notes (agree or disagree)? Why? @ -I reviewed and agree with nursing and triage notes Were old charts reviewed (outside hosp., previous admission, EMS record, old EKG, old radiological studies, urgent care reports/EKG's, residential records)? Report findings @ -Yes as above Differential Diagnosis (chest pain, altered mental status, abdominal pain women, abdominal pain men, vaginal bleeding, weakness, fever, dyspnea, syncope, headache, dizziness, GI bleed, back pain, seizure, CVA, palpatations, mental health, musculoskeletal)? @ -Differential Back Pain: Strain, zoster, cauda equina syndrome, epidural abscess, vertebral oste omyelitis, discitis, fracture, subluxation, disc herniation, DJD, spinal stenosis, dissection, AAA, pancreatitis, peptic ulcer disease, pyelonephritis, kidney stone, this is not meant to be an all-inclusive list. EKG interpreted by me (3pts min.). @ -n/a X-rays interpreted by me (1pt min.). @ -None done CT interpreted by me (1pt min.). @ -no U/S interpreted by me (1pt. min.). @ -None done What testing was considered but not performed or refused? (CT, X-rays, U/S, labs)? Why? @ -None What meds were considered but not given or refused? Why? @ -None Did you discuss the management of the patient with other professionals (professionals i.e. , PA, SQL DATABASE DEVELOPER, lab, RT, psych nurse, social media community manager, sales financial analyst, teacher, mounted police officer, onsite case manager)? Give summary @ -No Was smoking cessation discussed for >3mins.? @ -No Was critical care preformed (if so, how long)? @ -No Were there social determinants of health that impacted care today? How? (Ho melessness, low income, unemployed, alcoholism, drug addiction, transportation, low edu. Level, literacy, decrease access to med. care, snf, rehab)? @ -No Was there de-escalation of care discussed even if they declined (Discuss DNR or withdrawal of care, Hospice)? DNR status @ -No What co-morbidities impacted this encounter? (DM, HTN, Smoking, COPD, CAD, Cancer, CVA, ARF, Chemo, Hep., AIDS, mental health diagnosis, sleep apnea, morbid obesity)? @ -GERD, hypertension, kidney stones, anxiety, degenerative disease Was patient admitted / discharged? Hospital course, mention meds given and route, prescriptions, significant lab abnormalities, going to OR and other pertinent info. @ -Discharged Undiagnosed new problem with uncertain prognosis? @ -No Drug Therapy requiring intensive monitoring for toxicity (Heparin, Nitro, Insulin, Cardizem)? @ -No Were any procedures done? @ -No Diagnosis/symptom? @ -Kidney stone with minimal hydronephrosis Acute, or Chronic, or Acute on Chronic? @ -Acute on chronic Uncomplicated (without systemic symptoms) or Complicated (systemic symptoms)? @ -Uncomplicated Side effects of treatment? @ -No Exacerbation, Progression, or Severe Exacerbation? @ -No Poses a threat to life or bodily function? How? (Chest pain, [place], ND, pneumonia, PE, COPD, DKA, ARF, appy, cholecystitis, CVA, Diverticulitis, Homicidal, Suicidal, threat to staff... and all critical care pts) @ -No - Lab Data Result diagrams: 12/23/22 10:44 12/23/22 10:44 Lab Results 12/23/22 12/23/22 12/23/22 Range/Units 10:44 10:44 10:44 WBC 5.9 (3.8-10.6) k/uL RBC 4.27 (3.80-5.40) m/uL Hgb 12.9 (11.4-16.0) gm/dL Hct 37.5 (34.0-46.0) % MCV 87.9 (80.0-100.0) fL MCH 30.3 (25.0-35.0) pg MCHC 34.4 (31.0-37.0) g/dL RDW 12.9 (11.5-15.5) % Plt Count 183 (150-450) k/uL MPV 8.4 Neutrophils % 50 % Lymphocytes % 37 % Monocytes % 8 % Eosinophils % 2 % Basophils % 1 % Neutrophils # 2.9 (1.3-7.7) k/uL Lymphocytes # 2.2 (1.0-4.8) k/uL Monocytes # 0.4 (0-1.0) k/uL Eosinophils # 0.1 (0-0.7) k/uL Basophils # 0.0 (0-0.2) k/uL Sodium 138 (137-145) mmol/L Potassium 4.1 (3.5-5.1) mmol/L Chloride 102 (98-107) mmol/L Carbon Dioxide 30 (22-30) mmol/L Anion Gap 6 mmol/L BUN 15 (7-17) mg/dL Creatinine 0.55 (0.52-1.04) mg/dL Est GFR (CKD-EPI)AfAm >90 (>60 ml/min/1.73 sqM) Est GFR (CKD-EPI)NonAf >90 (>60 ml/min/1.73 sqM) Glucose 86 (74-99) mg/dL Plasma Lactic Acid Gaurav (0.7-2.0) mmol/L Calcium 8.9 (8.4-10.2) mg/dL Total Bilirubin 0.3 (0.2-1.3) mg/dL AST 17 (14-36) U/L ALT 15 (4-34) U/L Alkaline Phosphatase 56 (38-126) U/L Total Protein 6.1 L (6.3-8.2) g/dL Albumin 3.7 (3.5-5.0) g/dL Urine Color Yellow Urine Appearance Clear (Clear) Urine pH 5.5 (5.0-8.0) Ur Specific [place] 1.014 (1.001-1.035) Urine Protein Negative (Negative) Urine Glucose (UA) Negative (Negative) Urine Ketones Negative (Negative) Urine Blood Negative (Negative) Urine Nitrite Negative (Negative) Urine Bilirubin Negative (Negative) Urine Urobilinogen <2.0 (<2.0) mg/dL Ur Leukocyte Esterase Negative (Negative) 12/23/22 Range/Units 10:44 WBC (3.8-10.6) k/uL RBC (3.80-5.40) m/uL Hgb (11.4-16.0) gm/dL Hct (34.0-46.0) % MCV (80.0-100.0) fL MCH (25.0-35.0) pg MCHC (31.0-37.0) g/dL RDW (11.5-15.5) % Plt Count (150-450) k/uL MPV Neutrophils % % Lymphocytes % % Monocytes % % Eosinophils % % Basophils % % Neutrophils # (1.3-7.7) k/uL Lymphocytes # (1.0-4.8) k/uL Monocytes # (0-1.0) k/uL Eosinophils # (0-0.7) k/uL Basophils # (0-0.2) k/uL Sodium (137-145) mmol/L Potassium (3.5-5.1) mmol/L Chloride (98-107) mmol/L Carbon Dioxide (22-30) mmol/L Anion Gap mmol/L BUN (7-17) mg/dL Creatinine (0.52-1.04) mg/dL Est GFR (CKD-EPI)AfAm (>60 ml/min/1.73 sqM) Est GFR (CKD-EPI)NonAf (>60 ml/min/1.73 sqM) Glucose (74-99) mg/dL Plasma Lactic Acid Gaurav 0.8 (0.7-2.0) mmol/L Calcium (8.4-10.2) mg/dL Total Bilirubin (0.2-1.3) mg/dL AST (14-36) U/L ALT (4-34) U/L Alkaline Phosphatase (38-126) U/L Total Protein (6.3-8.2) g/dL Albumin (3.5-5.0) g/dL Urine Color Urine Appearance (Clear) Urine pH (5.0-8.0) Ur Specific [place] (1.001-1.035) Urine Protein (Negative) Urine Glucose (UA) (Negative) Urine Ketones (Negative) Urine Blood (Negative) Urine Nitrite (Negative) Urine Bilirubin (Negative) Urine Urobilinogen (<2.0) mg/dL Ur Leukocyte Esterase (Negative) Disposition Clinical Impression: Kidney stone on right side, Hydronephrosis with obstructing calculus Disposition: HOME SELF-CARE Condition: Good Instructions (If sedation given, give patient instructions): Kidney Stones (ED) Additional Instructions: Increase your fluid intake. Continue taking the antibiotics prescribed by your doctor. Take the Flomax and Toradol as prescribed. Keep your appointment with your urologist as scheduled next week. Return to the emergency room with a new or concerning symptoms including fever, persistent nausea vomiting or increased pain. Prescriptions: Tamsulosin [Flomax] 0.4 mg PO DAILY #7 cap Ketorolac [Toradol] 10 mg PO Q8HR #15 tab Is patient prescribed a controlled substance at d/c from ED?: No Referrals: Abdi Connolly MD [Primary Care Provider] - 1-2 days Time of Disposition: 12:09
[2022-12-23 11:06] LABS: Basophils % (A) 1 %; Eosinophils # (A) 0.1 k/uL (0-0.7); Eosinophils % (A) 2 %; HCT 37.5 % (34.0-46.0); HGB 12.9 gm/dL (11.4-16.0); Lymphocytes # (A) 2.2 k/uL (1.0-4.8); Lymphocytes % (A) 37 %; MCH 30.3 pg (25.0-35.0); MCHC 34.4 g/dL (31.0-37.0); MCV 87.9 fL (80.0-100.0); Mean Platelet Volume 8.4; Monocytes # (A) 0.4 k/uL (0-1.0); Monocytes % (A) 8 %; Neutrophils # (A) 2.9 k/uL (1.3-7.7); Neutrophils % (A) 50 %; Platelet Count 183 k/uL (150-450); RBC 4.27 m/uL (3.80-5.40); RDW 12.9 % (11.5-15.5); WBC 5.9 k/uL (3.8-10.6)
[2022-12-23 11:07] LABS: Appearance,Urine Clear (Clear); Bilirubin,Urine Negative (Negative); Blood,Urine Negative (Negative); Color,Urine Yellow; Glucose,Urine (UA) Negative (Negative); Ketones,Urine Negative (Negative); Leukocyte Esterase,Urine Negative (Negative); Nitrite,Urine Negative (Negative); PH, Urine 5.5 (5.0-8.0); Protein,Urine Negative (Negative); Specific Gravity,Urine 1.014 (1.001-1.035); Urobilinogen,Urine <2.0 mg/dL (<2.0)
[2022-12-23 11:17] LABS: ALT 15 U/L (4-34); AST 17 U/L (14-36); African American GFR (CKD) >90 (>60 ml/min/1.73 sqM); Albumin 3.7 g/dL (3.5-5.0); Alkaline Phosphatase 56 U/L (38-126); Anion Gap 6 mmol/L; Blood Urea Nitrogen 15 mg/dL (7-17); Calcium 8.9 mg/dL (8.4-10.2); Carbon Dioxide 30 mmol/L (22-30); Chloride 102 mmol/L (98-107); Glucose 86 mg/dL (74-99); Non-African American GFR(CKD) >90 (>60 ml/min/1.73 sqM); Potassium 4.1 mmol/L (3.5-5.1); Sodium 138 mmol/L (137-145); Total Bilirubin 0.3 mg/dL (0.2-1.3); Total Protein 6.1 g/dL (6.3-8.2)
[2022-12-23] MEDS ORDERED: fentaNYL (PF) 50 MCG/ML 2 ML AMP IVP PRN (11:41)
--- NOTE | 2022-12-23 11:47 | CT ---
EXAMINATION TYPE: CT abdomen pelvis wo con DATE OF EXAM: 12/23/2022 COMPARISON: 12/10/2019 INDICATION: Kidney stones DLP: 464.6 mGycm, Automated exposure control for dose reduction was used. CONTRAST: 0 mL of Isovue 300. Study performed without Oral Contrast TECHNIQUE: Axial images were obtained from above the diaphragm to the pubic rami in the axial plane a t 5 mm thick sections. Reconstructed images are reviewed on the computer in the coronal plane. FINDINGS: Limited CT sections are obtained the lung bases. The lung bases are clear. CT ABDOMEN: Liver: Normal Spleen: Normal Pancreas: Normal Adrenal glands: The adrenal glands are normal. Gallbladder: Normal Kidneys: No masses are evident. No hydronephrosis is present. No cysts are present. There is a 0.3 cm calcification without obstruction in the anterior mid right kidney. Minimal right hydronephrosis and hydroureter is present. This extends to the distal right ureter just above the right ureterovesic al junction. There is an obstructing 0.2 cm calcification at this level. No left-sided renal stones a re evident Aorta: Normal Inferior vena cava: Normal. CT PELVIS: Loops of bowel within the abdomen and pelvis are normal. The study is lateral contrast limiting b owel evaluation. There are a few scattered diverticuli present. Appendix: Normal as visualized. Urinary bladder: Normal. Genitourinary structures: Uterus is not clearly evident. Adnexal regions appear normal. Osseous structures: No suspicious lytic or sclerotic lesions. Degenerative disc Changes are within t he L5-S1 level. Some facet degenerative changes in the lower lumbar spine. IMPRESSIONS: 1. Obstructing 0.2 cm calcification in the distal right ureter just above the ureterovesical junctio n. Minimal right hydronephrosis and hydroureter is present.
[2022-12-23 12:27] VITALS: BP 120/77; PULSE 63
== END 2022-12-23 12:31 | disposition home or self-care (01) ==
LOC: EC 10:10
DX: N13.2 Hydronephrosis with renal and ureteral calculous obstruction (principal); I10 Essential (primary) hypertension; E07.9 Disorder of thyroid, unspecified; K21.9 Gastro-esophageal reflux disease without esophagitis; Z79.890 Hormone replacement therapy; Z79.899 Other long term (current) drug therapy; Z90.49 Acquired absence of other specified parts of digestive tract; Z90.710 Acquired absence of both cervix and uterus
CPT/HCPCS: 36415; 80053; 83605; 85025; 81003; 74176; 99285; 96374; 96375; 96361; J3010; J1885

== ENCOUNTER → 2023-03-13 | Outpatient (CLI) | payer OTHER ==
--- NOTE | 2023-03-13 08:25 | CT ---
EXAMINATION TYPE: CT abdomen pelvis wo con DATE OF EXAM: 03/13/2023 COMPARISON: 12/23/2022 HISTORY: 47-year-old female N2 0.0, Bilateral renal stones. CT DLP: 311.4 mGycm. Automated exposure control for dose reduction was used. TECHNIQUE: Contiguous axial scanning of the abdomen and pelvis without IV contrast. Coronal and sagit isabelle reconstructions performed. FINDINGS: LUNG BASES: No significant abnormality is appreciated. LIVER/GB: Gallbladder surgically absent. Otherwise, no significant abnormality is appreciated. PANCREAS: No significant abnormality is seen. SPLEEN: No significant abnormality is seen. ADRENALS: No significant abnormality is seen. KIDNEYS: Mild fullness of the right renal collecting system. No ureteral stone is seen. 4 mm nonobstr uctive right lower pole renal calculus. On the left, a couple punctate 1 to 2 mm calculi are present. No hydronephrosis on this side. BOWEL: Patulous and fluid-filled cecum. Appendix itself appears normal. Otherwise, moderate stool bur den. No pericolonic inflammatory change. LYMPH NODES: No significant abnormality is seen. OTHER: No significant abnormality is seen. PELVIS: Uterus surgically absent. Small bilateral ovaries are seen. There may be mild pelvic floor re laxation. No abnormal fluid collections otherwise seen in the pelvis. BONES: Moderate degenerative disc disease L4-L5 and L5-S1 with facet arthropathy. Otherwise, no signi ficant abnormality is seen. IMPRESSION: 1. Unusual, patulous and fluid-filled cecum. This may be on a transient basis especially as the shadi cent appendix appears normal. As a precautionary measure consider 3-6 month follow-up CT to ensure re solution and exclude an underlying mucinous lesion. 2. Mild fullness of the right renal collecting system. If the patient was experiencing right-sided p ain, this may reflect sequela of a recently passed stone. In addition, very couple small nonobstructi ve calculi in both sides measuring up to 4 mm.
--- NOTE | 2023-03-13 09:38 | US ---
EXAMINATION TYPE: US kidneys/renal and bladder DATE OF EXAM: 03/13/2023 COMPARISON: US 12/19/22 CT 12/23/22, 03/13/2023 CLINICAL INDICATION: Female, 47 years old with history of N20.0 KIDNEY STONE; history of kidney stone s EXAM MEASUREMENTS: Right Kidney: 10.2x4.8x5.4 cm Left Kidney: 11.3x4.5x3.9 cm Multiple grayscale and color Doppler ultrasound images of both kidneys and urinary bladder were obtai oleg. Right Kidney: mild hydro, 0.7cm echogenic area measured with twinkle artifact Left Kidney: 0.5cm echogenic area measured with twinkle artifact Bladder: wnl Bilateral Jets seen: Yes Minimal right hydronephrosis. Nonobstructive right renal calculus. Nonobstructive left renal calculus . No masses are identified. The urinary bladder is anechoic. Bilateral ureteral jets are seen. IMPRESSION: 1. Minimal right hydronephrosis. 2. Nonobstructive bilateral renal calculi.
== END | disposition home or self-care (01) ==
LOC: RADUSWWP 07:08
PROVIDERS: ATTEND Urology
DX: N13.2 Hydronephrosis with renal and ureteral calculous obstruction (principal); Z87.442 Personal history of urinary calculi
CPT/HCPCS: 74176; 76770

== ENCOUNTER → 2023-05-04 | Outpatient (CLI) | payer OTHER ==
--- NOTE | 2023-05-07 07:57 | MM ---
Reason for Exam: Screening (asymptomatic). Last screening mammogram was performed 12 month(s) ago. Patient History: Menarche at age 13. First Full-Term at age 19. Right ovary removed at age 44. Hysterectomy at age 44. Risk Values: Shanelle 5 year model risk: 0.6%. NCI Lifetime model risk: 6.8%. Prior Study Comparison: 12/04/2019 Bilateral Screening Mammogram, [facility]. 03/17/2021 Bilateral Screening Mammogram, [facility]. 05/05/2022 Bilateral MG screening mammo w CAD, [facility]. Tissue Density: The breast tissue is heterogeneously dense. This may lower the sensitivity of mammography. Findings: Analyzed By CAD. There is no suspicious group of microcalcifications or new suspicious mass in either breast. Overall Assessment: Negative, BI-RAD 1 Management: Screening Mammogram of both breasts in [address] [facility] will attempt to contact patient to return for supplemental views and ultrasound if indicated. Patient should continue monthly self-breast exams. A clinical breast exam by your physician is recommended on an annual basis. This exam should not preclude additional follow-up of suspicious palpable abnormalities. Note on Shanelle scores and lifetime risk: 1. A Shanelle score greater than 3% is considered moderate risk. If this is the case, consider specialist referral to assess eligibility for a risk reducing agent. 2. If overall lifetime risk for the development of breast cancer is 20% or higher, the patient may qualify for future screening with alternating mammogram and breast MRI. Electronically signed and approved by: Darius Dee DO
== END | disposition home or self-care (01) ==
LOC: RADMAMWWP 06:51
PROVIDERS: ATTEND Family Medicine
DX: Z12.31 Encounter for screening mammogram for malignant neoplasm of breast (principal)
CPT/HCPCS: 77067

== ENCOUNTER 2023-06-01 12:12 | Day surgery (SDC) | payer OTHER ==
[2023-05-31 10:38] VITALS: BMI 26.5
[2023-06-01] MEDS ORDERED: LIDOCAINE 1% (10MG/ML) FOR IV START INTRADERMA PRN (13:14)
[2023-06-01] MEDS ORDERED: ONDANSETRON 4 MG/2 ML VIAL IVP PRN (13:14)
[2023-06-01] MEDS ORDERED: LACTATED RINGERS 1,000 ML IV SCH (13:14)
[2023-06-01 13:23] VITALS: TEMP 97
[2023-06-01 13:32] LABS: Glucose,Whole Blood 97 mg/dL (70-110)
[2023-06-01] MEDS ORDERED: IV FLUID CONTINUATION 900 ML IV ONE (14:58)
[2023-06-01] MEDS ORDERED: PROPOFOL 10 MG/ML 20 ML VIAL IV ONE (15:00)
--- NOTE | 2023-06-01 15:18 | P.PCN ---
Date of Procedure: 06/01/23 Procedure(s) Performed: BRIEF HISTORY: Patient is a 47-year-old pleasant white female scheduled for an elective colonoscopy as a part of evaluation of abnormal CAT scan that showed abnormal-appearing cecum in March 2023. She is hence scheduled for colonoscopy to evaluate further. PROCEDURE PERFORMED: Colonoscopy. PREOPERATIVE DIAGNOSIS: Abnormal CAT scan didn't Normal-appearing cecum. IV sedation per Anesthesia. PROCEDURE: After informed consent was obtained, the patient, was brought into the endoscopy unit. IV sedation was administered by Anesthesia under continuous monitoring. Digital rectal examination was normal. Initially the Olympus CF-160 flexible video colonoscope was then inserted in the rectum, gradually advanced into the cecum without any difficulty. Careful examination was performed as the scope was gradually being withdrawn. Ileocecal valve and the appendiceal orifice were visualized and appeared normal. Prep was excellent. Mucosa of the cecum, ascending colon, transverse colon, descending colon, sigmoid colon, and rectum appeared normal. Retroflexion was performed in the rectum and no lesions were seen. The patient tolerated the procedure well. IMPRESSION: Normal-appearing colon from rectum to cecum with no evidence of colorectal neoplasia . RECOMMENDATIONS: Findings of this examination were discussed with the patient as well as a family. She was advised to have a repeat screening colonoscopy in 10 years..
[2023-06-01 15:55] VITALS: BP 115/78; PULSE 78; RESP 18
== END 2023-06-01 15:50 | disposition home or self-care (01) ==
LOC: ORWHC2ENDO 12:12
PROVIDERS: ATTEND Internal Medicine Gastroenterology
DX: R93.89 Abnormal findings on diagnostic imaging of other specified body structures (principal); I10 Essential (primary) hypertension; E78.5 Hyperlipidemia, unspecified; E11.9 Type 2 diabetes mellitus without complications; E07.9 Disorder of thyroid, unspecified; K21.9 Gastro-esophageal reflux disease without esophagitis; F41.9 Anxiety disorder, unspecified; Z79.890 Hormone replacement therapy; Z79.899 Other long term (current) drug therapy; Z98.890 Other specified postprocedural states
CPT/HCPCS: 45378; J2704

== ENCOUNTER → 2023-08-13 | Outpatient (CLI) | payer OTHER ==
--- NOTE | 2023-08-13 07:48 | XR ---
EXAMINATION TYPE: XR shoulder complete LT DATE OF EXAM: 08/13/2023 CLINICAL HISTORY: pain COMPARISON: NONE TECHNIQUE: Three views of the left shoulder are obtained. FINDINGS: There is no acute fracture/dislocation evident. The acromioclavicular and glenohumeral hanh int spaces appear within normal limits. The visualized ribs are intact and unremarkable. IMPRESSION: 1. There is no acute fracture or dislocation. ICD 10 NO FRACTURE, INITIAL EVALUATION
--- NOTE | 2023-08-13 07:53 | MR ---
EXAMINATION TYPE: MR lumbar spine wo con DATE OF EXAM: 08/13/2023 COMPARISON: None HISTORY: Lower back pain, LLE radiculopathy. CONTRAST: 0 mL intravenous Gadavist. TECHNIQUE: Multiplanar, multisequence images of the lumbar spine were acquired. FINDINGS: L5-S1: No significant disc bulge or disc herniation. No spinal canal stenosis. There is narrowing of the disc height. Some facet hypertrophy is present. Moderate right foraminal stenosis is present.. L4-L5: There is posterior disc space narrowing. Small left paracentral focal protrusion is present wi th mild anterior thecal sac compression. No AP spinal canal stenosis is present. Mild facet hypertrop hy is present. Neural foramen are patent. L3-L4: No significant disc bulge or disc herniation. No spinal canal stenosis. No foraminal stenosi s. Mild ligamentum flavum laxity is present with posterior lateral thecal sac compression. Slightly g reater on the left. L2-L3: No significant disc bulge or disc herniation. No spinal canal stenosis. No foraminal stenosi s. . L1-L2: Right paracentral disc bulge is present with mild anterior thecal sac compression. No AP spina l canal stenosis is present. Neural foramen are patent. T12-L1: No significant disc bulge or disc herniation. No spinal canal stenosis. No foraminal stenos is. . IMPRESSION: 1. Degenerative disc changes with loss of disc height at L5-S1. 2. Moderate right L5-S1 foraminal stenosis. 3. Small focal left paracentral disc protrusion without stenosis. 4. Right paracentral disc bulge at L1-2
== END | disposition home or self-care (01) ==
LOC: RADMRIMAIN 06:50
PROVIDERS: ATTEND Physical Medicine & Rehabilitation Brain Injury Medicine
DX: M51.17 Intervertebral disc disorders with radiculopathy, lumbosacral region (principal); M99.74 Connective tissue and disc stenosis of intervertebral foramina of sacral region; M25.512 Pain in left shoulder
CPT/HCPCS: 72148

== ENCOUNTER → 2023-12-31 | Outpatient (CLI) | payer OTHER ==
--- NOTE | 2023-12-31 18:44 | US ---
EXAMINATION TYPE: US kidneys/renal and bladder DATE OF EXAM: 12/31/2023 COMPARISON: US 2022 CLINICAL INDICATION: Female, 48 years old with history of N23 RENAL COLIC; EXAM MEASUREMENTS: Right Kidney: 10.0 x 4.8 x 4.5 cm Left Kidney: 10.6 x 4.5 x 4.4 cm Right Kidney: 0.5cm echogenic focus inferior pole Left Kidney: wnl Bladder: wnl Bilateral Jets seen: right jet seen, left jet not seen There is no evidence for hydronephrosis at this point in time. Nonobstructing right-sided nephrolithi asis. No masses are identified. The urinary bladder is anechoic. Bilateral ureteral jets are seen. IMPRESSION: Nonobstructing right-sided nephrolithiasis.
== END | disposition home or self-care (01) ==
LOC: RADUSWWP 16:12
PROVIDERS: ATTEND Family Medicine
DX: N20.0 Calculus of kidney (principal)
CPT/HCPCS: 76770

== ENCOUNTER → 2024-02-27 | Outpatient (CLI) | payer OTHER ==
--- NOTE | 2024-02-27 11:36 | CT ---
EXAMINATION TYPE: CT forearm RT wo con DATE OF EXAM: 02/27/2024 COMPARISON: Outside radiograph 12/25/2023 HISTORY: 48-year-old female fracture, RIGHT FOREARM LUMP TECHNIQUE: Contiguous axial scanning of the right forearm without IV contrast. Coronal and sagittal r econstructions performed. 3-D constructions generated on a dedicated independent workstation. CT DLP: 232.4 mGycm Automated exposure control for dose reduction was used. FINDINGS: Redemonstrated nondisplaced oblique, mid ulnar shaft fracture. There is irregularity along the fractu re margin along with some areas of sclerosis. Mild periosteal bridging is noted along the ulnar aspect (coronal series 12 images 17 and 20) and min imal endosteal bridging along the radial aspect (sagittal series 13 image 17). Otherwise, healing is incomplete. Overall appearance may be relatively similar compared to the 024 exam. Some periosteal bone along the ulnar margin causes some protuberance of the overlying skin surface. Mild degenerative spurring noted at the ulnar trochlear joint. Otherwise, elbow and wrist articulations are otherwise intact intact. IMPRESSION: 1. INCOMPLETE UNION OF THE PATIENT'S OBLIQUE MID ULNAR SHAFT FRACTURE. MILD PERIOSTEAL BRIDGING NOTED ALONG THE ULNAR ASPECT. SOME BONY CALLUS HERE MAY ACCOUNT FOR A CLINICALLY PALPABLE LUMP. MINIMAL EN DOSTEAL BRIDGING ALONG THE RADIAL ASPECT. 2. GIVEN SOME AREAS OF SCLEROSIS AND IRREGULARITY ALONG THE REMAINING FRACTURE MARGINS, RECOMMEND OMER ROPRIATE ORTHOPEDIC FOLLOW-UP TO ENSURE SATISFACTORY HEALING. 3. MILD DEGENERATIVE CHANGE AT THE ULNAR TROCHLEAR JOINT OF THE ELBOW.
== END | disposition home or self-care (01) ==
LOC: RADCTMAIN 09:08
PROVIDERS: ATTEND Family Medicine
DX: S52.201D Unspecified fracture of shaft of right ulna, subsequent encounter for closed fracture with routine healing (principal)

== ENCOUNTER → 2024-03-12 | Outpatient (CLI) | payer OTHER ==
[2024-03-13 02:53] LABS: Basophils # (A) 0.06 X 10*3/uL (0.00-0.10); Basophils % (A) 0.8 %; Eosinophils # (A) 0.06 X 10*3/uL (0.04-0.35); Eosinophils % (A) 0.8 %; HCT 43.2 % (37.2-46.3); HGB 14.2 g/dL (12.0-15.0); Lymphocytes # (A) 1.82 X 10*3/uL (0.90-5.00); MCHC 32.9 g/dL (32.0-37.0); MCV 88.3 FL (80.0-97.0); Mean Platelet Volume 10.6 FL (9.5-12.2); Monocytes # (A) 0.69 X 10*3/uL (0.20-1.00); Monocytes % (A) 9.1 %; NRBC Per 100 WBC 0 X 10*3/uL (0.00-0.01); Neutrophils # (A) 4.92 X 10*3/uL (1.80-7.70); Platelet Count 267 X 10*3/uL (140-440); RBC 4.89 X 10*6/uL (4.10-5.20); RDW 12.9 % (11.5-14.5); WBC 7.57 X 10*3/uL (4.50-10.00)
== END | disposition home or self-care (01) ==
LOC: LABPAT 15:25
PROVIDERS: ATTEND Orthopaedic Surgery Hand Surgery
DX: Z01.812 Encounter for preprocedural laboratory examination (principal)
CPT/HCPCS: 85025

== ENCOUNTER 2024-03-19 08:57 | Day surgery (SDC) | payer OTHER ==
--- NOTE | 2024-03-17 09:40 | P.HPOR ---
History of Present Illness H&P Date: 03/17/24 Subjective: This is a 48 year old female that presents today for follow up evaluation regarding a second opinion for a right forearm injury that occurred on 10/01/2023 when she was kicked by a cow and tried to block the leg resulting in a ulnar shaft fracture. She was seen originally by Dr. Eller who treated the fracture conservatively with long-arm casting for 2 months followed by transitioning to a short arm cast for an additional 4 weeks. She has continued pain and swelling around the area and numbness from the area of the break that extends to the dorsal hand, this has been improving as months go by. Her occasional numbness and tingling in the ring and the small finger has resolved. She denies any prior injury before this most recent incident. Physical Examination: RUE: AIN/PIN/Radial/Ulnar/Median motor intact. Radial/Ulnar/Median SILT. 2+/4 Radial/Ulnar pulses palpated. 5/5 APB, 5/5 FDI. Elbow ROM 0-130. TTP over ulnar shaft fracture. DRUJ stable to shuck. Imaging: X-Rays of the right wrist 3V taken at prior office visit demonstrate no abnormality. X-Rays of the right forearm 2v taken at prior office visit demonstrate a midshaft ulna fracture with signs of lakisha healing. CT scan of the right forearm on 02/27/24 demonstrate nonunion of ulnar shaft fracture. Impression: 1.) Right ulnar shaft fracture nonunion. Plan: Diagnosis and treatment options were discussed with the patient. We discussed she has signs of atrophic nonunion of her ulnar shaft fracture now 6 months from her injury with continued pain. Continued observation vs surgical intervention were discussed. She wishes to proceed with a right ulnar shaft fracture nonunion ORIF with bone autografting. Risks and benefits of surgery including bleeding, infection, damage to surrounding tissue, need for further surgery, residual numbness were discussed and the patient wished to go forward with surgery. Bone stimulator will be used post operatively and initial steps to organize this are taken. The patient was agreeable with this plan. CC: Abdi Connolly MD -Edmundo Courtney DO Orthopedic Hand/Upper Extremity Surgeon Past Medical History Past Medical History: GERD/Reflux, Hypertension, Thyroid Disorder Additional Past Medical History / Comment(s): "I think they seen a spot on the colon during my back CT", takes metformin for wt loss, no longer needs b/p meds, Grave's disease, heart murmur, constipation, hx kidney stones,degenerative disc disease History of Any Multi-Drug Resistant Organisms: None Reported Past Surgical History: Bladder Surgery, Cholecystectomy, Hysterectomy, Tonsillectomy, Tubal Ligation Additional Past Surgical History / Comment(s): thyroidectomy, bladder suspension, kidney stone removed Past Anesthesia/Blood Transfusion Reactions: No Reported Reaction Additional Past Anesthesia/Blood Transfusion Reaction / Comment(s): no hx blood transfusion Smoking Status: Former smoker - Past Family History Mother Family Medical History: Cancer, Deep Vein Thrombosis (DVT) Additional Family Medical History / Comment(s): colon Father Family Medical History: Cancer Additional Family Medical History / Comment(s): lung and bone Medications and Allergies Home Medications Medication Instructions Recorded Confirmed Type Cholecalciferol [Vitamin D3 (25 175 mcg PO 1200 11/05/18 05/31/23 History Mcg = 1000 Iu)] Escitalopram [Lexapro] 10 mg PO 1400 11/05/18 05/31/23 History Levothyroxine Sodium [Synthroid] 125 mcg PO 0000 11/05/18 05/31/23 History Omeprazole [PriLOSEC] 40 mg PO 0600 11/05/18 06/01/23 History Celecoxib [CeleBREX] 200 mg PO DAILY 05/31/23 05/31/23 History Estrogens, Conjugated [Premarin] 0.625 mg PO DAILY 05/31/23 05/31/23 History HYDROcodone/APAP 10-325MG [[place] 1 tab PO QID PRN 05/31/23 06/01/23 History 10-325] buPROPion XL [Wellbutrin XL] 300 mg PO 1400 05/31/23 05/31/23 History metFORMIN HCL [Glucophage] 500 mg PO BID 05/31/23 05/31/23 History Allergies Allergy/AdvReac Type Severity Reaction Status Date / Time No Known Allergies Allergy Verified 06/01/23 13:17 Physical Examination Osteopathic Statement: *. No significant issues noted on an osteopathic structural exam other than those noted in the History and Physical/Consult.
[2024-03-17 10:15] VITALS: BMI 25.9
[2024-03-19] MEDS ORDERED: HYDROmorphone 0.5 MG/0.5 ML SYRINGE IVP PRN (09:21)
[2024-03-19] MEDS ORDERED: LIDOCAINE 1% (10MG/ML) FOR IV START INTRADERMA PRN (09:21)
[2024-03-19] MEDS: LACTATED RINGERS 1,000 ML IV SCH (09:59)
[2024-03-19] MEDS: ONDANSETRON 4 MG/2 ML VIAL IVP ONE (09:59)
[2024-03-19] MEDS: DEXAMETHASONE SOD PHOSPHATE 4 MG/ML 1 ML VIAL IV ONE (09:59)
[2024-03-19 10:01] LABS: Glucose,Whole Blood 84 mg/dL (70-110)
[2024-03-19] MEDS: MIDAZOLAM 2 MG/2 ML VIAL IV PRN (10:03)
[2024-03-19] MEDS: METOCLOPRAMIDE 5 MG/ML 2 ML VIAL IVP STA (10:07)
[2024-03-19] MEDS: fentaNYL (PF) 50 MCG/ML 2 ML AMP IVP PRN (10:16)
[2024-03-19] MEDS: IV FLUID CONTINUATION 1,000 ML IV ONE (10:17)
[2024-03-19] MEDS ORDERED: PROPOFOL 10 MG/ML 20 ML VIAL IV ONE (10:24)
[2024-03-19] MEDS ORDERED: ROPIVACAINE 5 MG/ML 30 ML VIAL ONE (10:24)
[2024-03-19] MEDS ORDERED: DEXAMETHASONE SOD PHOSPHATE 4 MG/ML 1 ML VIAL ONE (10:24)
[2024-03-19] MEDS ORDERED: SUCCINYLCHOLINE CHLORIDE 200 MG/10 ML VIAL IV ONE (10:24)
[2024-03-19] MEDS ORDERED: MIDAZOLAM 2 MG/2 ML VIAL ONE (10:24)
[2024-03-19] MEDS ORDERED: LIDOCAINE 1% INJ 10MG/ML (20 ML MDV) ONE (10:24)
[2024-03-19] MEDS ORDERED: fentaNYL (PF) 50 MCG/ML 2 ML AMP ONE (10:24)
--- NOTE | 2024-03-19 10:27 | P.ANPRN ---
Procedure Note - Anesthesia - Nerve Block Performed Right Supraclavicular Single Time Out Performed: Yes Date of Procedure: 03/19/24 Procedure Start Time: 10:15 Procedure Stop Time: 10:20 Location of Patient: PreOp Indication: Acute Post-Operative Pain, Analgesia, Requested by Surgeon Sedation Type: Sedate with meaningful contact maintained Preparation: Sterile Prep Position: Sitting Catheter: None Needle Types: Pajunk Needle Gauge: 21 Ultrasound used to visualize needle placement: Yes Ultrasound used to observe medication spread: Yes Injectate: 0.5% Ropivacaine (see comment for volume) (Ropiv 20ml+decadron 4mg. AttemptX1) Blood Aspirated: No Pain Paresthesia on Injection Noted: No Resistance on Injection: Normal Image Stored and Saved: Yes Events: Uneventful and Well Tolerated
[2024-03-19 13:07] VITALS: TEMP 97.2
[2024-03-19 14:33] VITALS: BP 121/61; PULSE 86; RESP 16
--- NOTE | 2024-03-19 17:00 | P.OP ---
Date of Procedure: 03/19/24 Preoperative Diagnosis: Right ulnar shaft fracture nonunion Postoperative Diagnosis: Right ulnar shaft fracture nonunion Procedure(s) Performed: Right ulnar shaft nonunion open reduction internal fixation with distal radius bone autograft and bone allografting. ([id number] Implants: 1.) Dung variax 3.5mm compression plate 2.) Crushed cancellous bone allograft Anesthesia: lbessing CALLEJAS Surgeon: Edmundo Courtney Display Specialist #1: Garry Montejo Estimated Blood Loss (ml): 10 Pathology: none sent Condition: stable Disposition: PACU Description of Procedure: This is a 48 year old female who sustained a right ulnar shaft fracture that went on to a nonunion despite 6 months of non operative treatment and presents today for a right ulnar shaft nonunion ORIF with bone autograft. Risks and benefits of surgery were discussed with the patient including bleeding, damage to surrounding tissue, infection, need for further surgery as well as risks of anesthesia including pulmonary embolism and even and the patient wished to proceed with surgical intervention. The patient was seen in the pre-operative area by myself. Consent and H&P were completed and updated. The correct extremity was marked in the pre-operative area by myself and all other questions were answered. Operative Narrative: The patient was brought to the operating room by the department of anesthesia. They remained on the portable stretcher and a rolling hand table was brought to the side of the operative extremity. Pre-operative time out was performed indicating the correct patient, procedure and laterality. All in the room agreed. Pre-operative antibiotics were given prior to skin incision. The patient was then drifted off to sleep by the department of anesthesia. A nonsterile tourniquet was then applied to the operative extremity and the right upper extremity was then prepped and draped in normal sterile fashion. The operative extremity was the exsanguinated with an esmarch bandage and the tourniquet was inflated to 250mmHg. A longitudinal incision centered over the FCR tendon was made with a 15-blade scalpel. Blunt dissection was taken down to the FCR tendon sheath using Bovie cautery for meticulous hemostasis. The FCR sheath was opened with tenotomy scissors. The floor of the FCR sheath was then incised with a 15-blade scalpel and the FPL tendon and muscle belly was swept bluntly in an ulnar direction to r eveal the pronator quadratus. Pronator quadratus was sharply incised with a 15- blade scalpel along the radial border of the distal radius, coming across transversely parallel to the joint at the level of the watershed line, radial artery was identified and protected. Periosteal elevator was then used to elevate the pronator quadratus off the distal radius from a radial to ulnar fashion. K-wire was used to make a rectangle cortical window 1cm proximal to the articular surface which was open with an osteotome and cancellous distal radius bone graft was obtained for later grafting of the ulnar shaft. The incision was then closed with 4-0 monocryl suture. Longitudinal incision was made over the subcutaneous boarder of the ulna centered over the site of the nonunion. Sharp dissection was taken down through the fascia and the periosteum of the ulna was then sharply elevated. There was abundant callous formation present around the nonunion, her nonunion was most consistent with a hypertrophic nonunion. This outer layer of callous was removed with a rongeur down to the nonunion site. There was a clear nonunion present centrally at the site of the oblique fracture ends with sclerotic bone ends present and sclerotic medullary canals. Medullary canals were opened with a rongeur and all sclerotic bone and non viable fibrous tissue around the fracture site was removed. There was approximately 2 cm gap between the oblique ends of the fracture site leaving a defect to be filled with bone grafting. A dung variax 3.5mm compression plate was placed on the distal ulnar shaft and secured distally. The holes proximally where then drilled in compression mode which reduced the gap to around 1.5cm between the fracture ends with good cortical overlap. The previously obtained distal radius autograft was then mixed with cancellous allograft and saline. This graft was then packed into the defect through the radial and ulnar cortical windows and also through the plate opening over the 8 hole plate. X-rays were taken at the fracture site revealed good cortical contact and 8 cortices captured proximally and 6 distally with appropriate screw lengths. The forearm was then supinated an pronated and felt tight with rotation. Intra-operative X-rays of the wrist were performed, there was no evidence of DRUJ instability. Due to the compression needed to approximated the nonunion ends of the ulna the ulnar variance was roughly negative 4-5mm at the DRUJ. Decision was not made to perform any radial shaft shortening at this operative encounter, this was anticipated to be too much trau ma and soft tissue distruption at one time. The wound was then irrigated and fascia was closed over the plate with 3-0 Vicryl suture. Subcutaneous skin closure was performed with interrupted 4-0 monocryl suture followed by a running 4-0 monocryl suture. Skin closure was performed with skin glue. Short arm plaster splint was applied. Tourniquet was let down and the hand had immediate perfusion. The patient was then woken by the department of anesthesia and transferred to PACU in stable condition. Garry DE LA TORRE was present for the case to assist in fracture reduction and hardware placement. Disposition: The patient is to remain non-weight bearing in her operative splint until post op follow up in 1 week. X-rays of the forearm and wrist will be obtained at that time. I discussed with the daughter post operatively that we will see how she tolerates the ulnar negative variance that resulted from the need to compress across the fracture site to obtain cortical overlap over the following week or two. If she is symptomatic she may require a radial shortening osteotomy in the near future as a joint leveling procedure to restore DRUJ congruity and to preserve forearm rotation. Edmundo Courtney D.O. Orthopedic Hand/Upper Extremity Surgeon
== END 2024-03-19 14:59 | disposition home or self-care (01) ==
LOC: OR 08:57
PROVIDERS: ATTEND Orthopaedic Surgery Hand Surgery
DX: S52.201K Unspecified fracture of shaft of right ulna, subsequent encounter for closed fracture with nonunion (principal); G89.18 Other acute postprocedural pain; I10 Essential (primary) hypertension; K21.9 Gastro-esophageal reflux disease without esophagitis; Z79.1 Long term (current) use of non-steroidal anti-inflammatories (NSAID); Z79.84 Long term (current) use of oral hypoglycemic drugs; Z87.891 Personal history of nicotine dependence; Z90.49 Acquired absence of other specified parts of digestive tract; Z90.710 Acquired absence of both cervix and uterus
CPT/HCPCS: 64415; 25545; 20900; C1713 ×2; J2250; J0330; J1100; J2765; J0690; J2405; J2001; J3010; J2795; J2704

== ENCOUNTER → 2024-05-29 | Outpatient (CLI) | payer OTHER ==
--- NOTE | 2024-06-04 08:12 | MM ---
Reason for Exam: Screening (asymptomatic). Last screening mammogram was performed 12 month(s) ago. Patient History: Menarche at age 13. First Full-Term at age 19. Right ovary removed at age 44. Hysterectomy at age 44. Risk Values: Shanelle 5 year model risk: 0.7%. NCI Lifetime model risk: 6.7%. Prior Study Comparison: 03/17/2021 Bilateral Screening Mammogram, [facility]. 05/05/2022 Bilateral MG screening mammo w CAD, [facility]. 05/04/2023 Bilateral MG screening mammo w CAD, [facility]. Tissue Density: The breasts are heterogeneously dense, which may obscure small masses. Findings: Analyzed By CAD. Right breast: There is no suspicious group of microcalcifications or new suspicious mass. Left breast: There is no suspicious group of microcalcifications or new suspicious mass. Overall Assessment: Negative, BI-RAD 1 Management: Screening Mammogram of both breasts in [address] [facility] will attempt to contact patient to return for supplemental views and ultrasound if indicated. Patient should continue monthly self-breast exams. A clinical breast exam by your physician is recommended on an annual basis. This exam should not preclude additional follow-up of suspicious palpable abnormalities. Note on Shanelle scores and lifetime risk: 1. A Shanelle score greater than 3% is considered moderate risk. If this is the case, consider specialist referral to assess eligibility for a risk reducing agent. 2. If overall lifetime risk for the development of breast cancer is 20% or higher, the patient may qualify for future screening with alternating mammogram and breast MRI. Electronically signed and approved by: Darius Dee DO
== END | disposition home or self-care (01) ==
LOC: RADMAMWWP 07:21
PROVIDERS: ATTEND Family Medicine
DX: Z12.31 Encounter for screening mammogram for malignant neoplasm of breast
CPT/HCPCS: 77067

== ENCOUNTER 2025-01-07 06:29 | Emergency (ER) | payer OTHER ==
--- NOTE | 2025-01-07 07:07 | ED ---
Headache HPI - General Chief Complaint: Headache Stated Complaint: cold symptoms, sore throat Time Seen by Provider: 01/07/25 06:37 Source: patient, RN notes reviewed Mode of arrival: ambulatory Limitations: no limitations - History of Present Illness Initial Comments: This is a 49-year-old female who presents to the emergency department for headaches, body aches, a sore throat, and fatigue. States that it started 3 days ago. She has occasional nausea but no vomiting. She does not particularly have a cough, but states that she feels like she is constantly clearing her throat. Denies any chest pain or shortness of breath. She has not measured any fevers or chills. Denies any sick contacts. - Related Data Home Medications Medication Instructions Recorded Confirmed Cholecalciferol [Vitamin D3 (25 175 mcg PO 1200 11/05/18 03/19/24 Mcg = 1000 Iu)] Escitalopram [Lexapro] 10 mg PO 1400 11/05/18 03/19/24 Levothyroxine Sodium [Synthroid] 125 mcg PO 0000 11/05/18 03/19/24 Omeprazole [PriLOSEC] 40 mg PO 0600 11/05/18 03/19/24 Estrogens, Conjugated [Premarin] 0.625 mg PO DAILY 05/31/23 03/19/24 HYDROcodone/APAP 10-325MG [[place] 1 tab PO QID PRN 05/31/23 03/19/24 10-325] buPROPion XL [Wellbutrin XL] 300 mg PO 1400 05/31/23 03/19/24 Baclofen 10 mg PO DAILY PRN 03/17/24 03/19/24 Pregabalin 50 mg PO HS 03/17/24 03/19/24 Pregabalin 100 mg PO DAILY 03/17/24 03/19/24 Semaglutide [Wegovy] 0.5 mg SQ SA 03/17/24 03/19/24 Previous Rx's Medication Instructions Recorded Ketorolac [Toradol] 10 mg PO Q6HR PRN #15 tab 01/07/25 Ondansetron Odt [Zofran Odt] 4 mg PO Q8HR PRN #15 tab 01/07/25 Allergies Allergy/AdvReac Type Severity Reaction Status Date / Time No Known Allergies Allergy Verified 01/07/25 06:33 Review of Systems ROS Statement: Those systems with pertinent positive or pertinent negative responses have been documented in the HPI. ROS Other: All systems not noted in ROS Statement are negative. Past Medical History Past Medical History: GERD/Reflux, Hypertension, Thyroid Disorder Additional Past Medical History / Comment(s): "I think they seen a spot on the colon during my back CT", takes metformin for wt loss, no longer needs b/p meds, Grave's disease, heart murmur, constipation, hx kidney stones,degenerative disc disease History of Any Multi-Drug Resistant Organisms: None Reported Past Surgical History: Bladder Surgery, Cholecystectomy, Hysterectomy, Tonsillectomy, Tubal Ligation Additional Past Surgical History / Comment(s): thyroidectomy, bladder suspension, kidney stone removed Past Anesthesia/Blood Transfusion Reactions: No Reported Reaction Additional Past Anesthesia/Blood Transfusion Reaction / Comment(s): no hx blood transfusion Past Psychological History: Anxiety Smoking Status: Former smoker - Past Family History Mother Family Medical History: Cancer, Deep Vein Thrombosis (DVT) Additional Family Medical History / Comment(s): colon Father Family Medical History: Cancer Additional Family Medical History / Comment(s): lung and bone General Exam Limitations: no limitations General appearance: alert, in no apparent distress Head exam: Present: atraumatic, normocephalic, normal inspection Eye exam: Present: normal appearance, PERRL, EOMI. Absent: scleral icterus, conjunctival injection, periorbital swelling Respiratory exam: Present: normal lung sounds bilaterally. Absent: respiratory distress, wheezes, rales, rhonchi, stridor Cardiovascular Exam: Present: regular rate, normal rhythm GI/Abdominal exam: Present: soft, normal bowel sounds. Absent: distended, tenderness, guarding, rebound, rigid Neurological exam: Present: alert, oriented X3, CN II-XII intact Psychiatric exam: Present: normal affect, normal mood Skin exam: Present: warm, dry, intact, normal color. Absent: rash Course Vital Signs 01/07/25 01/07/25 01/07/25 06:34 07:45 08:35 Temperature 97.5 F L 98.9 F 98.6 F Pulse Rate 83 81 Respiratory 18 20 Rate Blood Pressure 114/78 143/74 O2 Sat by Pulse 98 95 Oximetry Medical Decision Making - Medical Decision Making This is a 49-year-old female who presents to the emergency department for headaches, body aches, and fatigue. Was pt. sent in by a medical professional or institution? @ -No Did you speak to anyone other than the patient for history? @ -No Did you review nursing and triage notes? @ -Yes, and I agree, it is accurate with regards to the patient's symptoms. Were old charts reviewed? @ -No Differential Diagnosis? @ -Differential Headache: Migraine, tension, cluster, carbon monoxide, central venous thrombosis, pension karma temporal arteritis, acute closure glaucoma, intercranial hemorrhage, mastoiditis, sinusitis, head injury, this is not meant to be an all-inclusive list. EKG interpreted by me (3pts min.)? @ -Not obtained X-rays interpreted by me (1pt min.)? @ -Not obtained CT interpreted by me (1pt min.)? @ -Not obtained U/S interpreted by me (1pt. min.)? @ -Not obtained What testing was considered but not performed? (CT, X-rays, U/S, labs)? Why? @ -None What meds were considered but not given? Why? @ -None Did you discuss the management of the patient with other professionals? @ -No Did you reconcile home meds? @ -No Was smoking cessation discussed for >3mins.? @ -No Was critical care preformed (if so, how long)? @ -No Were there social determinants of health that impacted care today? How? (Homelessness, low income, unemployed, alcoholism, drug addiction, transp ortation, low edu. Level, literacy, decrease access to med. care, fdc, rehab)? @ -No Was there de-escalation of care discussed even if they declined? (Discuss DNR or withdrawal of care, Hospice)? @ -No What co-morbidities impacted this encounter? (DM, HTN, Smoking, COPD, CAD, Cancer, CVA, Hep., AIDS, mental health diagnosis, sleep apnea, morbid obesity)? @ -None Was patient admitted / discharged? @ -Discharged. COVID, influenza, and RSV testing negative. Rapid strep test negative. Patient's symptoms were well-controlled in the emergency department. Advised that symptoms are likely viral in nature. Toradol and Zofran prescribed for further symptomatic management. Advised follow-up with her PCP for reevaluation. Patient discharged home in stable condition. Case discussed with ED attending Dr. Clarke. Return precautions reviewed in depth, the patient is instructed to return to the emergency department with any new, worsening, or concerning symptoms. Patient verbalized understanding. Undiagnosed new problem with uncertain prognosis? @ -None Drug Therapy requiring intensive monitoring for toxicity (Heparin, Nitro, Insulin, Cardizem)? @ -None Were any procedures done? @ -None Diagnosis/symptom? @ -Viral URI Acute, or Chronic, or Acute on Chronic? @ -Acute Uncomplicated (without systemic symptoms) or Complicated (systemic symptoms)? @ -Uncomplicated Side effects of treatment? @ -None Exacerbation, Progression, or Severe Exacerbation] @ -Not applicable Poses a threat to life or bodily function? @ -No - Lab Data Lab Results 01/07/25 01/07/25 Range/Units 06:53 06:53 Influenza Type A (PCR) Not Detected (Not Detectd) Influenza Type B (PCR) Not Detected (Not Detectd) RSV (PCR) Not Detected (Not Detectd) SARS-CoV-2 (PCR) Not Detected (Not Detectd) Group A Strep (PCR) NOT DETECTED (Not Detectd) Disposition Clinical Impression: Viral URI Disposition: HOME SELF-CARE Instructions (If sedation given, give patient instructions): Upper Respiratory Infection (ED) Additional Instructions: Return to the emergency department with any new, worsening, or concerning symptoms. Take the Toradol with Tylenol as needed for pain relief. If you choose to take the Toradol, do not take any other anti-inflammatories such as ibuprofen, take one or the other. Take the Zofran up to every 8 hours as needed for nausea and vomiting. Make sure you get plenty of rest and remain well- hydrated. Follow up with your primary care provider in 1-2 days. Prescriptions: Ketorolac [Toradol] 10 mg PO Q6HR PRN #15 tab PRN Reason: Pain Ondansetron Odt [Zofran Odt] 4 mg PO Q8HR PRN #15 tab PRN Reason: Nausea And Vomiting Is patient prescribed a controlled substance at d/c from ED?: No Referrals: Abdi Connolly MD [Primary Care Provider] - 1-2 days Time of Disposition: 08:25
[2025-01-07] MEDS: SODIUM CHLORIDE 0.9% 1,000 ML IV ONE (07:08)
[2025-01-07] MEDS: DEXAMETHASONE SOD PHOSPHATE 10 MG/ML 1 ML VIAL IVP STA (07:21)
[2025-01-07] MEDS: KETOROLAC 15 MG/ML 1 ML VIAL IVP STA (07:21)
[2025-01-07] MEDS: diphenhydrAMINE 50 MG/ML 1 ML VIAL IVP STA (07:21)
[2025-01-07 08:18] LABS: Influenza A Not Detected (Not Detectd); Influenza B Not Detected (Not Detectd); RSV Not Detected (Not Detectd)
[2025-01-07 08:36] VITALS: BP 143/74; PULSE 81; RESP 20; TEMP 98.6
== END 2025-01-07 08:36 | disposition home or self-care (01) ==
LOC: EC 06:29
DX: J06.9 Acute upper respiratory infection, unspecified (principal); Z87.891 Personal history of nicotine dependence
CPT/HCPCS: 87651; 87636; 99284; 96374; 96375 ×2; 96361; J1200; J1100; J1885

== ENCOUNTER 2025-04-20 08:13 | Emergency (ER) | payer OTHER ==
[2025-04-20 08:18] VITALS: RESP 18
--- NOTE | 2025-04-20 08:29 | ED ---
Abdominal Pain HPI - General Chief Complaint: Abdominal Pain Stated Complaint: Back Pain/urogenital Time Seen by Provider: 04/20/25 08:17 Source: patient, RN notes reviewed Mode of arrival: ambulatory Limitations: no limitations - History of Present Illness Initial Comments: This is a 49-year-old female who presents to the emergency department for back p ain and abdominal pain. States that a few hours ago she developed pain in the right flank which radiates into the right lower quadrant. She has some associated nausea. Reports a history of kidney stones and states that this feels the same. Most recent kidney stone was around August of last year and states that she was able to pass it on her own. MD Complaint: abdominal pain - Related Data Home Medications Medication Instructions Recorded Confirmed Cholecalciferol [Vitamin D3 (25 175 mcg PO 1200 11/05/18 03/19/24 Mcg = 1000 Iu)] Escitalopram [Lexapro] 10 mg PO 1400 11/05/18 03/19/24 Levothyroxine Sodium [Synthroid] 125 mcg PO 0000 11/05/18 03/19/24 Omeprazole [PriLOSEC] 40 mg PO 0600 11/05/18 03/19/24 Estrogens, Conjugated [Premarin] 0.625 mg PO DAILY 05/31/23 03/19/24 HYDROcodone/APAP 10-325MG [[place] 1 tab PO QID PRN 05/31/23 03/19/24 10-325] buPROPion XL [Wellbutrin XL] 300 mg PO 1400 05/31/23 03/19/24 Baclofen 10 mg PO DAILY PRN 03/17/24 03/19/24 Pregabalin 50 mg PO HS 03/17/24 03/19/24 Pregabalin 100 mg PO DAILY 03/17/24 03/19/24 Semaglutide [Wegovy] 0.5 mg SQ SA 03/17/24 03/19/24 Previous Rx's Medication Instructions Recorded Ketorolac [Toradol] 10 mg PO Q6HR PRN #15 tab 01/07/25 Ondansetron Odt [Zofran Odt] 4 mg PO Q8HR PRN #15 tab 01/07/25 Ketorolac [Toradol] 10 mg PO Q6HR PRN #15 tab 04/20/25 Ondansetron Odt [Zofran Odt] 4 mg PO Q8HR PRN #15 tab 04/20/25 Tamsulosin [Flomax] 0.4 mg PO DAILY #7 cap 04/20/25 Allergies Allergy/AdvReac Type Severity Reaction Status Date / Time No Known Allergies Allergy Verified 01/07/25 06:33 Review of Systems ROS Statement: Those systems with pertinent positive or pertinent negative responses have been documented in the HPI. ROS Other: All systems not noted in ROS Statement are negative. Past Medical History Past Medical History: GERD/Reflux, Hypertension, Thyroid Disorder Additional Past Medical History / Comment(s): "I think they seen a spot on the colon during my back CT", takes metformin for wt loss, no longer needs b/p meds, Grave's disease, heart murmur, constipation, hx kidney stones,degenerative disc disease History of Any Multi-Drug Resistant Organisms: None Reported Past Surgical History: Bladder Surgery, Cholecystectomy, Hysterectomy, Tonsillectomy, Tubal Ligation Additional Past Surgical History / Comment(s): thyroidectomy, bladder suspension, kidney stone removed Past Anesthesia/Blood Transfusion Reactions: No Reported Reaction Additional Past Anesthesia/Blood Transfusion Reaction / Comment(s): no hx blood transfusion Past Psychological History: Anxiety Smoking Status: Former smoker Past Alcohol Use History: None Reported Past Drug Use History: None Reported - Past Family History Mother Family Medical History: Cancer, Deep Vein Thrombosis (DVT) Additional Family Medical History / Comment(s): colon Father Family Medical History: Cancer Additional Family Medical History / Comment(s): lung and bone General Exam Limitations: no limitations General appearance: alert, in no apparent distress Head exam: Present: atraumatic, normocephalic, normal inspection Respiratory exam: Present: normal lung sounds bilaterally. Absent: respiratory distress, wheezes, rales, rhonchi, stridor Cardiovascular Exam: Present: regular rate, normal rhythm GI/Abdominal exam: Present: soft, tenderness (RLQ). Absent: distended Back exam: Present: CVA tenderness (R). Absent: CVA tenderness (L) Neurological exam: Present: alert, oriented X3, CN II-XII intact Psychiatric exam: Present: normal affect, normal mood Skin exam: Present: warm, dry, intact, normal color. Absent: rash Course Vital Signs 04/20/25 04/20/25 04/20/25 08:15 09:07 11:21 Temperature 97.6 F 98.7 F Pulse Rate 79 75 68 Respiratory 18 18 18 Rate Blood Pressure 184/101 192/92 132/70 O2 Sat by Pulse 99 99 100 Oximetry Medical Decision Making - Medical Decision Making This is a 49-year-old female who presents to the emergency department for back pain and abdominal pain. Was pt. sent in by a medical professional or institution? @ -No Did you speak to anyone other than the patient for history? @ -No Did you review nursing and triage notes? @ -Yes, and I agree, it is accurate with regards to the patient's symptoms. Were old charts reviewed? @ -No Differential Diagnosis? @ -Differential Abdominal Pain Women: Appendicitis, Cholecystitis, diverticulosis, ischemic bowel, pancreatitis, hepatitis, UTI, gastroenteritis, AAA, incarcerated hernia, bowel obstruction, constipation, inflammatory bowel, hepatitis, peptic ulcer disease, splenic infarction, perforated viscus, vulvitis, ovarian torsion, PID, kidney stone, placenta abruption, this is not meant to be an all-inclusive list EKG interpreted by me (3pts min.)? @ -Not obtained X-rays interpreted by me (1pt min.)? @ -Not obtained CT interpreted by me (1pt min.)? @ -CT scan of the abdomen and pelvis obtained. My interpretation identifies a right ureteral calculus. U/S interpreted by me (1pt. min.)? @ -Not obtained What testing was considered but not performed? (CT, X-rays, U/S, labs)? Why? @ -None What meds were considered but not given? Why? @ -None Did you discuss the management of the patient with other professionals? @ -No Did you reconcile home meds? @ -No Was smoking cessation discussed for >3mins.? @ -No Was critical care preformed (if so, how long)? @ -No Were there social determinants of health that impacted care today? How? (Homelessness, low income, unemployed, alcoholism, drug addiction, transp ortation, low edu. Level, literacy, decrease access to med. care, [facility] [facility], rehab)? @ -No Was there de-escalation of care discussed even if they declined? (Discuss DNR or withdrawal of care, Hospice)? @ -No What co-morbidities impacted this encounter? (DM, HTN, Smoking, COPD, CAD, Cancer, CVA, Hep., AIDS, mental health diagnosis, sleep apnea, morbid obesity)? @ -Kidney stones Was patient admitted / discharged? @ -Discharged. Lab work demonstrates mild hypokalemia with a potassium of 3.4 and is otherwise unremarkable. 40 mEq of K-Dur administered. Urinalysis demonstrates blood but is negative for signs of infection. CT scan of the abdomen and pelvis demonstrates a 6 mm calculus at the right UVJ with moderate obstructive uropathy. Findings reviewed with the patient. Pain was managed in the emergency department. She is already on [place] at home and was given a prescription for Toradol, Zofran, and Flomax. Information for follow-up with urology provided as well. Patient discharged home in stable condition. Case discussed with ED attending Dr. Agustin. Return precautions reviewed in depth, the patient is instructed to return to the emergency department with any new, worsening, or concerning symptoms. Patient verbalized understanding. Undiagnosed new problem with uncertain prognosis? @ -None Drug Therapy requiring intensive monitoring for toxicity (Heparin, Nitro, Insulin, Cardizem)? @ -None Were any procedures done? @ -None Diagnosis/symptom? @ -Right ureteral calculus Acute, or Chronic, or Acute on Chronic? @ -Acute Uncomplicated (without systemic symptoms) or Complicated (systemic symptoms)? @ -Uncomplicated Side effects of treatment? @ -None Exacerbation, Progression, or Severe Exacerbation] @ -Not applicable Poses a threat to life or bodily function? @ -No - Lab Data Result diagrams: 04/20/25 08:37 04/20/25 08:37 Lab Results 04/20/25 04/20/25 04/20/25 Range/Units 08:37 08:37 08:37 WBC 7.43 (4.50-10.00) 10*3/uL RBC 4.73 (4.10-5.20) 10*6/uL Hgb 13.8 (12.0-15.0) g/dL Hct 40.5 (37.2-46.3) % MCV 85.6 (80.0-97.0) fL MCH 29.2 (27.0-32.0) pg MCHC 34.1 (32.0-37.0) g/dL Plt Count 246 (140-440) 10*3/uL MPV 10.7 (9.5-12.2) fL Immature Gran % (Auto) 0.1 % Neutrophils % 37.2 % Lymphocytes % 48.2 % Monocytes % 11.8 % Eosinophils % 1.6 % Basophils % 1.1 % Immature Gran # 0.01 (0.00-0.04) 10*3/uL Neutrophils # 2.76 (1.80-7.70) 10*3/uL Lymphocytes # 3.58 (0.90-5.00) 10*3/uL Monocytes # 0.88 (0.20-1.00) 10*3/uL Eosinophils # 0.12 (0.04-0.35) 10*3/uL Basophils # 0.08 (0.00-0.10) 10*3/uL Sodium 139 (137-145) mmol/L Potassium 3.4 L (3.5-5.1) mmol/L Chloride 100 (98-107) mmol/L Carbon Dioxide 29 (22-30) mmol/L Anion Gap 10 mmol/L BUN 14 (7-17) mg/dL Creatinine 0.64 (0.52-1.04) mg/dL Est GFR (CKD-EPI)AfAm >90 (>60 ml/min/1.73 sqM) Est GFR (CKD-EPI)NonAf >90 (>60 ml/min/1.73 sqM) Glucose 97 (74-99) mg/dL Plasma Lactic Acid Gaurav 1.0 (0.7-2.0) mmol/L Calcium 9.6 (8.4-10.2) mg/dL Total Bilirubin 0.3 (0.2-1.3) mg/dL AST 25 (14-36) U/L ALT 20 (4-34) U/L Alkaline Phosphatase 87 (38-126) U/L Total Protein 6.9 (6.3-8.2) g/dL Albumin 4.2 (3.5-5.0) g/dL Urine Color Urine Appearance (Clear) Urine pH (5.0-8.0) Ur Specific [place] (1.001-1.035) Urine Protein (Negative) Urine Glucose (UA) (Negative) Urine Ketones (Negative) Urine Blood (Negative) Urine Nitrite (Negative) Urine Bilirubin (Negative) Urine Urobilinogen (<2.0) mg/dL Ur Leukocyte Esterase (Negative) Urine RBC (0-5) /hpf Urine WBC (0-5) /hpf Ur Squamous Epith Cells (0-4) /hpf Urine Mucus (None) /hpf 04/20/25 Range/Units 09:06 WBC (4.50-10.00) 10*3/uL RBC (4.10-5.20) 10*6/uL Hgb (12.0-15.0) g/dL Hct (37.2-46.3) % MCV (80.0-97.0) fL MCH (27.0-32.0) pg MCHC (32.0-37.0) g/dL Plt Count (140-440) 10*3/uL MPV (9.5-12.2) fL Immature Gran % (Auto) % Neutrophils % % Lymphocytes % % Monocytes % % Eosinophils % % Basophils % % Immature Gran # (0.00-0.04) 10*3/uL Neutrophils # (1.80-7.70) 10*3/uL Lymphocytes # (0.90-5.00) 10*3/uL Monocytes # (0.20-1.00) 10*3/uL Eosinophils # (0.04-0.35) 10*3/uL Basophils # (0.00-0.10) 10*3/uL Sodium (137-145) mmol/L Potassium (3.5-5.1) mmol/L Chloride (98-107) mmol/L Carbon Dioxide (22-30) mmol/L Anion Gap mmol/L BUN (7-17) mg/dL Creatinine (0.52-1.04) mg/dL Est GFR (CKD-EPI)AfAm (>60 ml/min/1.73 sqM) Est GFR (CKD-EPI)NonAf (>60 ml/min/1.73 sqM) Glucose (74-99) mg/dL Plasma Lactic Acid Gaurav (0.7-2.0) mmol/L Calcium (8.4-10.2) mg/dL Total Bilirubin (0.2-1.3) mg/dL AST (14-36) U/L ALT (4-34) U/L Alkaline Phosphatase (38-126) U/L Total Protein (6.3-8.2) g/dL Albumin (3.5-5.0) g/dL Urine Color Colorless Urine Appearance Clear (Clear) Urine pH 7.0 (5.0-8.0) Ur Specific [place] 1.008 (1.001-1.035) Urine Protein Negative (Negative) Urine Glucose (UA) Negative (Negative) Urine Ketones Negative (Negative) Urine Blood Small H (Negative) Urine Nitrite Negative (Negative) Urine Bilirubin Negative (Negative) Urine Urobilinogen <2.0 (<2.0) mg/dL Ur Leukocyte Esterase Negative (Negative) Urine RBC 48 H (0-5) /hpf Urine WBC <1 (0-5) /hpf Ur Squamous Epith Cells 2 (0-4) /hpf Urine Mucus Rare H (None) /hpf - Radiology Data Radiology results: report reviewed, image reviewed Disposition Clinical Impression: Right ureteral calculus Disposition: HOME SELF-CARE Instructions (If sedation given, give patient instructions): Renal Colic (ED), Ureteral Stones (ED) Additional Instructions: Return to the emergency department with any new, worsening, or concerning symptoms. Take the Flomax daily until you pass the kidney stone or until your pain resolves. Take the Toradol with Tylenol as needed for pain relief. If you choose to take the Toradol, do not take any other anti-inflammatories such as ibuprofen, take one or the other. Take the Zofran up to every 8 hours as needed for nausea and vomiting. Follow-up with urology as listed below. Follow up with your primary care provider in 1-2 days. Prescriptions: Tamsulosin [Flomax] 0.4 mg PO DAILY #7 cap Ketorolac [Toradol] 10 mg PO Q6HR PRN #15 tab PRN Reason: Pain Ondansetron Odt [Zofran Odt] 4 mg PO Q8HR PRN #15 tab PRN Reason: Nausea And Vomiting Is patient prescribed a controlled substance at d/c from ED?: No Referrals: Abdi Connolly MD [Primary Care Provider] - 1-2 days Fransisco Delgado MD [STAFF PHYSICIAN] - 1-2 days Time of Disposition: 11:12
[2025-04-20 08:44] LABS: Basophils # (A) 0.08 10*3/uL (0.00-0.10); Basophils % (A) 1.1 %; Eosinophils # (A) 0.12 10*3/uL (0.04-0.35); Eosinophils % (A) 1.6 %; HCT 40.5 % (37.2-46.3); HGB 13.8 g/dL (12.0-15.0); Lymphocytes # (A) 3.58 10*3/uL (0.90-5.00); Lymphocytes % (A) 48.2 %; MCH 29.2 pg (27.0-32.0); MCHC 34.1 g/dL (32.0-37.0); MCV 85.6 fL (80.0-97.0); Monocytes # (A) 0.88 10*3/uL (0.20-1.00); Monocytes % (A) 11.8 %; Neutrophils # (A) 2.76 10*3/uL (1.80-7.70); Neutrophils % (A) 37.2 %; Platelet Count 246 10*3/uL (140-440); RBC 4.73 10*6/uL (4.10-5.20); RDW 12.4 % (11.5-14.5); WBC 7.43 10*3/uL (4.50-10.00)
[2025-04-20 09:02] LABS: ALT 20 U/L (4-34); AST 25 U/L (14-36); African American GFR (CKD) >90 (>60 ml/min/1.73 sqM); Albumin 4.2 g/dL (3.5-5.0); Alkaline Phosphatase 87 U/L (38-126); Anion Gap 10 mmol/L; Blood Urea Nitrogen 14 mg/dL (7-17); Calcium 9.6 mg/dL (8.4-10.2); Carbon Dioxide 29 mmol/L (22-30); Chloride 100 mmol/L (98-107); Glucose 97 mg/dL (74-99); Non-African American GFR(CKD) >90 (>60 ml/min/1.73 sqM); Potassium 3.4 mmol/L (3.5-5.1); Sodium 139 mmol/L (137-145); Total Protein 6.9 g/dL (6.3-8.2)
[2025-04-20] MEDS: SODIUM CHLORIDE 0.9% 1,000 ML IV ONE (09:20)
[2025-04-20] MEDS: ONDANSETRON 4 MG/2 ML VIAL IVP STA (09:21)
[2025-04-20] MEDS: KETOROLAC 15 MG/ML 1 ML VIAL IVP STA (09:22)
[2025-04-20] MEDS: MORPHINE SULFATE 4 MG/ML SYRINGE IVP STA (09:23)
[2025-04-20 09:35] LABS: Bilirubin,Urine Negative (Negative); Blood,Urine Small (Negative); Color,Urine Colorless; Glucose,Urine (UA) Negative (Negative); Ketones,Urine Negative (Negative); Leukocyte Esterase,Urine Negative (Negative); Mucus,Urine Rare /hpf; Nitrite,Urine Negative (Negative); PH, Urine 7.0 (5.0-8.0); Protein,Urine Negative (Negative); RBC,Urine 48 /hpf (0-5); Specific Gravity,Urine 1.008 (1.001-1.035); Squamous Epithelial Cell,Urine 2 /hpf (0-4); Urobilinogen,Urine <2.0 mg/dL (<2.0); WBC,Urine <1 /hpf (0-5)
--- NOTE | 2025-04-20 09:57 | CT ---
EXAMINATION TYPE: CT abdomen pelvis wo con DATE OF EXAM: 04/20/2025 9:36 AM COMPARISON: 03/13/2023 CLINICAL INDICATION: Female, 49 years old with history of Right flank pain, hx of kidney stones. TECHNIQUE: CT of the abdomen and pelvis without IV contrast. Coronal and sagittal reconstructions per formed. CT DLP: 452.2 mGycm, Automated exposure control for dose reduction was used. FINDINGS: LOWER CHEST: Streaky atelectasis of the left base. ABDOMEN LIVER: Unremarkable GALLBLADDER AND BILE DUCTS: Gallbladder is surgically absent. Bile duct dilated at 9 mm probably due to chronic postcholecystectomy state. Correlate with alkaline phosphatase and bilirubin levels. PANCREAS: Unremarkable. SPLEEN: Unremarkable. ADRENAL GLANDS: Unremarkable. KIDNEYS AND URETERS: There is moderate right-sided hydronephrosis and right-sided hydroureter. 6 mm s tone at the right UVJ. A couple nonobstructive right renal stones are present measuring up to 3 mm. Punctate 2 mm nonobstructive left renal stone. Right-sided perinephric edema likely reactive to the o bstruction. PELVIS BLADDER: No evidence for wall thickening or mass given limitations of exam. REPRODUCTIVE: Unremarkable. ABDOMEN & PELVIS STOMACH AND BOWEL: Small hiatal hernia. No evidence of bowel obstruction. Mild diffuse colonic wall t hickening likely due to nondistention. PERITONEUM/RETROPERITONEUM: No evidence of pneumoperitoneum or free fluid. VASCULATURE: No evidence of aortic aneurysm. MUSCULOSKELETAL: Moderate to severe degenerative disc disease L4-L5 and L5-S1. Facet arthropathy lowe r lumbar spine. LYMPH NODES: No gross evidence for lymphadenopathy. SOFT TISSUE/ABDOMINAL WALL: Mild pelvic floor relaxation. No abnormal pelvic or pelvic lymphadenopath y seen. IMPRESSION: 1. A 6 mm stone at the right UVJ with moderate obstructive uropathy. 2. Additional few nonobstructive bilateral nephrolithiasis measuring up to 3 mm. [facility], , 04/20/2025 9:55 AM
[2025-04-20] MEDS: POTASSIUM CHLORIDE ER 20 MEQ TAB.ER PO STA (10:22)
[2025-04-20] MEDS: PROCHLORPERAZINE INJ 10 MG/2 ML VIAL IVP STA (10:23)
[2025-04-20] MEDS: HYDROmorphone 1 MG/ML 1 ML SYRINGE IVP STA (10:23)
[2025-04-20 11:23] VITALS: BP 132/70; PULSE 68; TEMP 98.7
[2025-04-20] MEDS: traMADol 50 MG STARTER PACK TAB BTL PO STA (11:23)
== END 2025-04-20 11:28 | disposition home or self-care (01) ==
LOC: EC 08:13
DX: N20.2 Calculus of kidney with calculus of ureter (principal); Z87.891 Personal history of nicotine dependence
CPT/HCPCS: 36415; 80053; 83605; 85025; 81001; 74176; 99284; 96374; 96375; 96361; J2270; J0780; J2405; J1171; J1885